=== PATIENT | male | born 1965 | race Two or more races ===

== ENCOUNTER 2020-05-31 12:39 | Inpatient (IN) | payer OTHER ==
[~2020-05-31] VITALS: Ht 144.8 cm; Wt 56.9 kg
--- NOTE | 2020-05-31 14:13 | PHYS DOC ---
Past Medical History Past Medical History: Diabetes-Type II, Hypertension Past Surgical History: No Surgical History Smoking Status: Never Smoker Alcohol Use: None Drug Use: None General Adult EDM: Chief Complaint: ABNORMAL LABS HPI: HPI: 55-year-old male presents emergency department today after being sent here when he had blood work taken a few days ago and then was called to go to the emergency department because of his lab work. He reports severe kidney damage and high potassium is the abnormal blood work. He otherwise feels fine and does not have any symptoms. Onset 2 days ago. Duration constant. No alleviating factors. No specific timing. Review of systems: He denies headache chest pain shortness of breath abdominal pain fevers chills. Negative for dysuria polyuria vomiting facial drooping vision changes slurred speech. All other review of systems negative. ED course: 55-year-old male presenting with abnormal labs. On arrival the patient severely hypertensive. IV labetalol given. Labs show acute renal failure with elevated potassium. Patient was given glucose insulin, bicarbonate. I spoke to our washer operator about the patient. He asked that I start the patient on 100 mL/h of maintenance fluids. We will admit the patient to hospital. I spoke with the hospitalist who accepts patient for admission. Heart Score: Risk Factors: Risk Factors: DM, Current or recent (<one month) smoker, HTN, HLP, family history of CAD, obesity. Risk Scores: Score 0 - 3: 2.5% MACE over next 6 weeks - Discharge Home Score 4 - 6: 20.3% MACE over next 6 weeks - Admit for Clinical Observation Score 7 - 10: 72.7% MACE over next 6 weeks - Early Invasive Strategies Physical Exam: PE: Constitutional: Well developed, well nourished, no acute distress, non-toxic appearance. [] HENT: Normocephalic, atraumatic, bilateral external ears normal, oropharynx moist, no oral exudates, nose normal. [] Eyes: PERRLA, EOMI, conjunctiva normal, no discharge. [] Neck: Normal range of motion, no tenderness, supple, no stridor. [] Cardiovascular:Heart rate regular rhythm, no murmur [] Lungs & Thorax: Bilateral breath sounds clear to auscultation [] Abdomen: Bowel sounds normal, soft, no tenderness, no masses, no pulsatile masses. [] Skin: Warm, dry, no erythema, no rash. [] Back: No tenderness, no CVA tenderness. [] Extremities: No tenderness, no cyanosis, no clubbing, ROM intact, no edema. [] Neurologic: Mental status: Awake oriented and alert x3 Cranial nerves: Extraocular movements intact, eyebrows jaylon bilaterally, smile symmetric, uvula elevation nl, shoulder shrug intact bilaterally, tongue protrusion normal DTRs: 2+ Sensation: equal and normal in all extremities Strength: 5/5 in upper and lower extremities bilaterally Psychologic: Affect normal, judgement normal, mood normal. [] EKG: EKG: [] Radiology/Procedures: Radiology/Procedures: [] Course & Med Decision Making: Course & Med Decision Making Pertinent Labs and Imaging studies reviewed. (See chart for details) [] Dragon Disclaimer: Dragon Disclaimer: This electronic medical record was generated, in whole or in part, using a voice recognition dictation system. Departure Departure Impression: Primary Impression: Acute renal failure (ARF) Additional Impression: Hyperkalemia Disposition: ADMITTED INPATIENT Condition: STABLE Referrals: CATHRYN GRECO (PCP) Justicifation of Admission Dx: Justifications for Admission: Justification of Admission Dx: Yes Critical Care Time Critical care time was 55 minutes exclusive of procedures. MIKE COLLIER MD May 31, 2020 14:13
[2020-05-31 14:15] LABS: BASO # 0.1 x10^3/uL (0.0-0.2); BASO % 1 % (0-3); EOS # 0.1 x10^3/uL (0.0-0.7); EOS % 2 % (0-3); HEMATOCRIT 26.1 % (39.0-53.0); LYMPH # 1.1 x10^3/uL (1.0-4.8); LYMPH % 13 % (24-48); MEAN CORPUSCULAR HEMOGLOBIN 31 pg (25-35); MEAN CORPUSCULAR HGB CONC 35 g/dL (31-37); MEAN CORPUSCULAR VOLUME 90 fL (79-100); MONO # 0.5 x10^3/uL (0.0-1.1); MONO % 6 % (0-9); NEUT # 6.5 x10^3/uL (1.8-7.7); NEUT % 79 % (31-73); PLATELET COUNT 197 x10^3/uL (140-400); RED BLOOD COUNT 2.91 x10^6/uL (4.30-5.70); RED CELL DISTRIBUTION WIDTH 13.1 % (11.5-14.5); WHITE BLOOD COUNT 8.3 x10^3/uL (4.0-11.0)
[2020-05-31] MEDS ORDERED: LABETALOL 20 MG/4 ML DISP.SYRIN. IVP ONE (14:15)
[2020-05-31 14:21] LABS: CREATININE 6.8 mg/dL (0.7-1.3); GFR 8.4; POTASSIUM 5.7 mmol/L (3.5-5.1)
[2020-05-31 14:27] LABS: ALBUMIN 3.2 g/dL (3.4-5.0); DIRECT BILIRUBIN 0.1 mg/dL (0.0-0.2); TOTAL BILIRUBIN 0.3 mg/dL (0.2-1.0); TOTAL PROTEIN 7.2 g/dL (6.4-8.2)
[2020-05-31] MEDS ORDERED: CALCIUM GLUCONATE 1,000 MG/10 ML VIAL. IVP ONE (14:45)
[2020-05-31] MEDS ORDERED: DEXTROSE 50% 25 GM / 50ML DISP.SYRIN. IV ONE (14:45)
[2020-05-31] MEDS ORDERED: ALBUTEROL SULFATE 2.5 MG/3 ML NEBU. CONT NEB ONE (14:45)
[2020-05-31] MEDS ORDERED: INSULIN REGULAR 100 UNIT/ML 3ML VIAL. IV ONE (14:45)
[2020-05-31] MEDS ORDERED: SODIUM BICARB ADULT 8.4% 50 MEQ/50 ML DISP.SYRIN. IV ONE (14:45)
[2020-05-31] MEDS ORDERED: IV NORMAL SALINE 1000ML BAG 1,000 ML IV SCH (15:00)
[2020-05-31 17:10] VITALS: BP 182/98
[2020-05-31] MEDS ORDERED: DEXTROSE 50% 25 GM / 50ML DISP.SYRIN. IV PRN (17:15)
--- NOTE | 2020-05-31 18:08 | PDOC1 ---
History and Physical Date of Admission Date of Admission DATE: 05/31/20 TIME: 18:08 Identification/Chief Complaint Chief Complaint Hyperkalemia Source Source: Caregiver History of Present Illness History of Present Illness Patient is a 55 to male who presents to the ED for hyperkalemia. History was obtained with assistance from patient's son. Patient was seen by his [facility] two days ago for initiation of dialysis appointment, with blood work drawn at that time. He was contacted today and told to go straight to the ED because his blood work showed hyperkalemia. Patient admits to some lethargy, mild numbness in his right hand, but denies any significant weakness. He was also noted to be severely hypertensive in the ED. He is somewhat of a poor historian, stating he only takes two medications, one fo blood pressure and one for diabetes, but he cannot recall the names. Past Medical History Cardiovascular: HTN Renal/: Chronic renal insuff Past Surgical History Past Surgical History: No pertinent history Family History Family History: Diabetes Social History Smoke: <1 pack per day ALCOHOL: none Drugs: None Current Problem List Problems: (1) Malnutrition (2) Acute renal failure (ARF) (3) Hyperkalemia (4) Acute on chronic renal failure (5) Hypertensive urgency Current Medications Current Medications Current Medications Labetalol HCl (Normodyne Iv Push) 10 mg 1X ONCE IVP Last administered on 05/31/20at 14:59; Start 05/31/20 at 14:15; Stop 05/31/20 at 14:22; Status DC Sodium Bicarbonate (Sodium Bicarb Adult 8.4% Syr) 50 meq 1X ONCE IV Last administered on 05/31/20at 15:00; Start 05/31/20 at 14:45; Stop 05/31/20 at 14:46; Status DC Calcium Gluconate (Calcium Gluconate) 1,000 mg 1X ONCE IVP Last administered on 05/31/20at 15:00; Start 05/31/20 at 14:45; Stop 05/31/20 at 14:46; Status DC Albuterol Sulfate (Ventolin Neb Soln) 10 mg 1X ONCE CONT NEB Last administered on 05/31/20at 14:52; Start 05/31/20 at 14:45; Stop 05/31/20 at 14:46; Status DC Insulin Human Regular (HumuLIN R VIAL) 10 unit 1X ONCE IV Last administered on 05/31/20at 15:02; Start 05/31/20 at 14:45; Stop 05/31/20 at 14:46; Status DC Dextrose (Dextrose 50%-Water Syringe) 25 gm 1X ONCE IV Last administered on 05/31/20at 15:00; Start 05/31/20 at 14:45; Stop 05/31/20 at 14:46; Status DC Sodium Chloride 1,000 ml @ 100 mls/hr 1X IV Last administered on 05/31/20at 15:04; Start 05/31/20 at 15:00; Stop 05/31/20 at 20:59 Insulin Human Lispro (HumaLOG) 0-5 UNITS TIDWMEALS SQ ; Start 06/01/20 at 08:00 Dextrose (Dextrose 50%-Water Syringe) 12.5 gm PRN Q15MIN PRN IV SEE COMMENTS; Start 05/31/20 at 17:15 Allergies Allergies: Coded Allergies: No Known Drug Allergies (Unverified , 05/31/20) ROS General: YES: Fatigue; No: Chills PSYCHOLOGICAL ROS: No: Anxiety, Depression Eyes: No Blurry vision, No Decreased vision, No Double vision HEENT: No: Heacaches, Nasal congestion, Sore Throat ALLERGY AND IMMUNOLOGY: No: Hives, Nasal Congestion Hematological and Lymphatic: No: Bleeding Problems, Brusing Respiratory: No: Cough, Shortness of breath, Wheezing Cardiovascular: No Chest Pain, No Palpitations Gastrointestinal: No Nausea, No Vomiting, No Abdominal Pain Genitourinary: No Dysuria Musculoskeletal: No Joint Swelling, No Muscle Pain, No Muscular Weakness Neurological: Yes Numbness/Tingling; No Confusion, No Dizziness, No Weakness Skin: No Dry Skin Physical Exam General: Alert, Oriented X3, Cooperative, No acute distress HEENT: PERRLA Lungs: Clear to auscultation, Normal air movement Heart: RRR, jugular vein distention Cardiovascular: S1, S2 Abdomen: Normal bowel sounds, Soft, No tenderness, No hepatosplenomegaly, No m asses Extremities: No clubbing, No cyanosis, No edema, Normal pulses, No tenderness/swelling Skin: No rashes, No breakdown, No significant lesion Neuro: Normal gait, Normal speech, Normal tone Psych/Mental Status: Mental status NL, Mood NL Vitals Vitals Vital Signs Date Time Temp Pulse Resp B/P (MAP) Pulse Ox O2 Delivery O2 Flow Rate FiO2 05/31/20 17:10 97.5 88 20 182/98 (126) 99 Room Air 97.5 Labs Labs Laboratory Tests Test 05/31/20 14:00 05/31/20 17:12 05/31/20 18:04 White Blood Count 8.3 x10^3/uL (4.0-11.0) Red Blood Count 2.91 x10^6/uL (4.30-5.70) Hemoglobin 9.0 g/dL (13.0-17.5) Hematocrit 26.1 % (39.0-53.0) Mean Corpuscular Volume 90 fL (79-100) Mean Corpuscular Hemoglobin 31 pg (25-35) Mean Corpuscular Hemoglobin Concent 35 g/dL (31-37) Red Cell Distribution Width 13.1 % (11.5-14.5) Platelet Count 197 x10^3/uL (140-400) Neutrophils (%) (Auto) 79 % (31-73) Lymphocytes (%) (Auto) 13 % (24-48) Monocytes (%) (Auto) 6 % (0-9) Eosinophils (%) (Auto) 2 % (0-3) Basophils (%) (Auto) 1 % (0-3) Neutrophils # (Auto) 6.5 x10^3/uL (1.8-7.7) Lymphocytes # (Auto) 1.1 x10^3/uL (1.0-4.8) Monocytes # (Auto) 0.5 x10^3/uL (0.0-1.1) Eosinophils # (Auto) 0.1 x10^3/uL (0.0-0.7) Basophils # (Auto) 0.1 x10^3/uL (0.0-0.2) Sodium Level 136 mmol/L (136-145) Potassium Level 5.7 mmol/L (3.5-5.1) Chloride Level 103 mmol/L (98-107) Carbon Dioxide Level 22 mmol/L (21-32) Anion Gap 11 (6-14) Blood Urea Nitrogen 68 mg/dL (8-26) Creatinine 6.8 mg/dL (0.7-1.3) Estimated GFR (Cockcroft-Gault) 8.4 Glucose Level 103 mg/dL (70-99) Calcium Level 8.0 mg/dL (8.5-10.1) Total Bilirubin 0.3 mg/dL (0.2-1.0) Direct Bilirubin 0.1 mg/dL (0.0-0.2) Aspartate Amino Transf (AST/SGOT) 17 U/L (15-37) Alanine Aminotransferase (ALT/SGPT) 23 U/L (16-63) Alkaline Phosphatase 99 U/L (46-116) Troponin I Quantitative < 0.017 ng/mL (0.000-0.055) Total Protein 7.2 g/dL (6.4-8.2) Albumin 3.2 g/dL (3.4-5.0) Lipase 257 U/L (73-393) Glucose (Fingerstick) 29 mg/dL (70-99) 92 mg/dL (70-99) Laboratory Tests Test 05/31/20 14:00 05/31/20 17:12 05/31/20 18:04 White Blood Count 8.3 x10^3/uL (4.0-11.0) Red Blood Count 2.91 x10^6/uL (4.30-5.70) Hemoglobin 9.0 g/dL (13.0-17.5) Hematocrit 26.1 % (39.0-53.0) Mean Corpuscular Volume 90 fL (79-100) Mean Corpuscular Hemoglobin 31 pg (25-35) Mean Corpuscular Hemoglobin Concent 35 g/dL (31-37) Red Cell Distribution Width 13.1 % (11.5-14.5) Platelet Count 197 x10^3/uL (140-400) Neutrophils (%) (Auto) 79 % (31-73) Lymphocytes (%) (Auto) 13 % (24-48) Monocytes (%) (Auto) 6 % (0-9) Eosinophils (%) (Auto) 2 % (0-3) Basophils (%) (Auto) 1 % (0-3) Neutrophils # (Auto) 6.5 x10^3/uL (1.8-7.7) Lymphocytes # (Auto) 1.1 x10^3/uL (1.0-4.8) Monocytes # (Auto) 0.5 x10^3/uL (0.0-1.1) Eosinophils # (Auto) 0.1 x10^3/uL (0.0-0.7) Basophils # (Auto) 0.1 x10^3/uL (0.0-0.2) Sodium Level 136 mmol/L (136-145) Potassium Level 5.7 mmol/L (3.5-5.1) Chloride Level 103 mmol/L (98-107) Carbon Dioxide Level 22 mmol/L (21-32) Anion Gap 11 (6-14) Blood Urea Nitrogen 68 mg/dL (8-26) Creatinine 6.8 mg/dL (0.7-1.3) Estimated GFR (Cockcroft-Gault) 8.4 Glucose Level 103 mg/dL (70-99) Calcium Level 8.0 mg/dL (8.5-10.1) Total Bilirubin 0.3 mg/dL (0.2-1.0) Direct Bilirubin 0.1 mg/dL (0.0-0.2) Aspartate Amino Transf (AST/SGOT) 17 U/L (15-37) Alanine Aminotransferase (ALT/SGPT) 23 U/L (16-63) Alkaline Phosphatase 99 U/L (46-116) Troponin I Quantitative < 0.017 ng/mL (0.000-0.055) Total Protein 7.2 g/dL (6.4-8.2) Albumin 3.2 g/dL (3.4-5.0) Lipase 257 U/L (73-393) Glucose (Fingerstick) 29 mg/dL (70-99) 92 mg/dL (70-99) VTE Prophylaxis Ordered VTE Prophylaxis Devices: No VTE Pharmacological Prophylaxi: Yes Assessment/Plan Assessment/Plan Acute on Chronic Renal Failure Hyperkalemia Hypertensive Urgency Malnutrition Plan: Will monitor potassium and administer insulin as needed. Labetalol prn SBP >180. Will resume home BP meds once we can verify, or discharge on calcium channel gabriella. Consult to Nephrology for any further ecommendation son management before discharge. He can initiate hemodialysis outpatient. Justifications for Admission Other Justification ANTONIO CISNEROS MD May 31, 2020 18:08
--- NOTE | 2020-05-31 18:12 | NUR ---
The patient, WILMAN BROWER, 55 y/o, M admitted by ANTONIO CISNEROS MD, was given written information regarding hospital policies, unit procedures and contact persons. Valuables were checked and left at bedside. Patient is [place]ian speaking only so spinner open end phone was used to question patient for medical histroy and home medications. Patient was diaphoretic upon arrival to unit. Upon check of blood glucose it was found to be 29. Gave 1/2 AMP of dextrose and a dinner tray. Will continue to monitor
[2020-05-31] MEDS ORDERED: BISACODYL 10 MG SUPP.RECT. PR PRN (18:15)
--- NOTE | 2020-05-31 18:24 | NUR ---
Recheck glucose = 92
[2020-05-31] MEDS ORDERED: SODIUM POLYSTYRENE SULFON/SORB 15 GM/60 ML ORAL.SUSP. PO ONE (18:30)
[2020-05-31 19:35] VITALS: BP 180/97
--- NOTE | 2020-05-31 20:19 | RAD ---
RENAL COMPLETE BILATERAL History: Reason: Kidney failure / Spl. Instructions: / History: Comparison: None. Procedure: Transabdominal ultrasound images are obtained of the kidneys and bladder. Findings: Right kidney: measures 9.6 by 4.8 x 4.7 cm. Right renal cyst measures 1.8 x 1.6 x 1.1 cm. No follow-up imaging is recommended per consensus recommendations based on imaging criteria. No hydronephrosis. Small perinephric fluid. Left kidney: measures 10.7 x 5.1 x 4.9 cm. Normal cortical echotexture. Corticomedullary differentiation is preserved. No hydronephrosis. Small perinephric fluid. Urinary bladder: Distended urinary bladder. Urinary bladder volume 503 mL. No urinary bladder wall thickening. Bilateral ureteral jets are identified. The IVC is normal caliber. The visualized abdominal aorta is normal caliber. Bilateral pleural effusions. IMPRESSION: 1. Small nonspecific bilateral perinephric fluid. No hydronephrosis. 2. Distended urinary bladder. 3. Bilateral pleural effusions. Electronically signed by: Damián Abad DO (05/31/2020 8:16 PM) [facility]
[2020-05-31] MEDS: LABETALOL 20 MG/4 ML DISP.SYRIN. IVP PRN (21:19)
[2020-05-31] MEDS: HEPARIN for SUB-Q USE 5,000 UNIT/ML VIAL. SQ SCH (21:26)
[2020-05-31 22:40] VITALS: BP 175/94
[2020-05-31 22:51] LABS: BILIRUBIN,URINE NEGATIVE (NEG); CLARITY,URINE CLEAR; COLOR,URINE YELLOW; NITRITE,URINE NEGATIVE (NEG); PROTEIN,URINE >=300 mg/dL (NEG-TRACE); UROBILINOGEN,URINE 0.2 mg/dL (0.2 mg/dL)
[2020-05-31 23:15] LABS: BACTERIA,URINE FEW /HPF (0-FEW)
[2020-05-31 23:16] LABS: SQUAMOUS EPITHELIAL CELL,UR FEW /LPF
[2020-06-01 02:30] VITALS: BP 160/86
[2020-06-01] MEDS: HEPARIN for SUB-Q USE 5,000 UNIT/ML VIAL. SQ SCH ×3 (06:23→22:20)
[2020-06-01 07:00] VITALS: BP 154/88
[2020-06-01] MEDS: INSULIN LISPRO 300 UNITS/3 ML VIAL. SQ SCH ×3 (08:00→17:00)
--- NOTE | 2020-06-01 09:58 | PDOC ---
PROGRESS NOTES Date of Service: DATE: 06/01/20 TIME: 09:58 Chief Complaint Chief Complaint VTE Prophylaxis Ordered VTE Prophylaxis Devices: No VTE Pharmacological Prophylaxi: Yes impression Assessment/Plan Acute on Chronic Renal Failure Hyperkalemia Hypertensive Urgency Malnutrition Plan: Will monitor potassium and administer insulin as needed. Labetalol prn SBP >180. Will resume home BP meds once we can verify, or discharge on calcium channel gabriella. Consult to Nephrology He can initiate hemodialysis outpatient. d/w rn Justifications for Admission Justifications for Admission Other Justification History of Present Illness History of Present Illness History of Present Illness History of Present Illness Patient is a 55 to male who presents to the ED for hyperkalemia. History was obtained with assistance from patient's son. 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 He was contacted today and told to go straight to the ED because his blood work showed hyperkalemia. Patient admits to some lethargy, mild numbness in his right hand, but denies any significant weakness. He was also noted to be severely hypertensive in the ED. He is somewhat of a poor historian, stating he only takes two medications, one fo blood pressure and one for diabetes, but he cannot recall the names. Past Medical History Cardiovascular: HTN Renal/: Chronic renal insuff Past Surgical History Past Surgical History: No pertinent history Family History Family History: Diabetes Social History Smoke: <1 pack per day ALCOHOL: none Drugs: None Vitals Vitals Vital Signs Date Time Temp Pulse Resp B/P (MAP) Pulse Ox O2 Delivery O2 Flow Rate FiO2 06/01/20 08:00 Room Air 06/01/20 07:00 98.2 91 18 154/88 (110) 96 98.2 Physical Exam General: Alert, Oriented X3, Cooperative, No acute distress Heart: Regular rate Abdomen: Normal bowel sounds, Soft, No tenderness, No hepatosplenomegaly, No masses Extremities: No clubbing, No cyanosis, No edema, Normal pulses, No t enderness/swelling Skin: No rashes, No breakdown, No significant lesion Labs LABS RENAL COMPLETE BILATERAL History: Reason: Kidney failure / Spl. Instructions: / History: Comparison: None. Procedure: Transabdominal ultrasound images are obtained of the kidneys and bladder. Findings: Right kidney: measures 9.6 by 4.8 x 4.7 cm. Right renal cyst measures 1.8 x 1.6 x 1.1 cm. No follow-up imaging is recommended per consensus recommendations based on imaging criteria. No hydronephrosis. Small perinephric fluid. Left kidney: measures 10.7 x 5.1 x 4.9 cm. Normal cortical echotexture. Corticomedullary differentiation is preserved. No hydronephrosis. Small perinephric fluid. Urinary bladder: Distended urinary bladder. Urinary bladder volume 503 mL. No urinary bladder wall thickening. Bilateral ureteral jets are identified. The IVC is normal caliber. The visualized abdominal aorta is normal caliber. Bilateral pleural effusions. IMPRESSION: 1. Small nonspecific bilateral perinephric fluid. No hydronephrosis. 2. Distended urinary bladder. 3. Bilateral pleural effusions. Electronically signed by: Damián Fang DO (05/31/2020 8:16 PM) [facility] DICTATED and SIGNED BY: DAMIÁN FANG DO Laboratory Tests Test 05/31/20 14:00 05/31/20 17:12 05/31/20 18:04 05/31/20 21:06 White Blood Count 8.3 x10^3/uL (4.0-11.0) Red Blood Count 2.91 x10^6/uL (4.30-5.70) Hemoglobin 9.0 g/dL (13.0-17.5) Hematocrit 26.1 % (39.0-53.0) Mean Corpuscular Volume 90 fL (79-100) Mean Corpuscular Hemoglobin 31 pg (25-35) Mean Corpuscular Hemoglobin Concent 35 g/dL (31-37) Red Cell Distribution Width 13.1 % (11.5-14.5) Platelet Count 197 x10^3/uL (140-400) Neutrophils (%) (Auto) 79 % (31-73) Lymphocytes (%) (Auto) 13 % (24-48) Monocytes (%) (Auto) 6 % (0-9) Eosinophils (%) (Auto) 2 % (0-3) Basophils (%) (Auto) 1 % (0-3) Neutrophils # (Auto) 6.5 x10^3/uL (1.8-7.7) Lymphocytes # (Auto) 1.1 x10^3/uL (1.0-4.8) Monocytes # (Auto) 0.5 x10^3/uL (0.0-1.1) Eosinophils # (Auto) 0.1 x10^3/uL (0.0-0.7) Basophils # (Auto) 0.1 x10^3/uL (0.0-0.2) Sodium Level 136 mmol/L (136-145) Potassium Level 5.7 mmol/L (3.5-5.1) Chloride Level 103 mmol/L (98-107) Carbon Dioxide Level 22 mmol/L (21-32) Anion Gap 11 (6-14) Blood Urea Nitrogen 68 mg/dL (8-26) Creatinine 6.8 mg/dL (0.7-1.3) Estimated GFR (Cockcroft-Gault) 8.4 Glucose Level 103 mg/dL (70-99) Calcium Level 8.0 mg/dL (8.5-10.1) Total Bilirubin 0.3 mg/dL (0.2-1.0) Direct Bilirubin 0.1 mg/dL (0.0-0.2) Aspartate Amino Transf (AST/SGOT) 17 U/L (15-37) Alanine Aminotransferase (ALT/SGPT) 23 U/L (16-63) Alkaline Phosphatase 99 U/L (46-116) Troponin I Quantitative < 0.017 ng/mL (0.000-0.055) Total Protein 7.2 g/dL (6.4-8.2) Albumin 3.2 g/dL (3.4-5.0) Lipase 257 U/L (73-393) Glucose (Fingerstick) 29 mg/dL (70-99) 92 mg/dL (70-99) 211 mg/dL (70-99) Test 05/31/20 22:45 06/01/20 07:19 Urine Collection Type Unknown Urine Color Yellow Urine Clarity Clear Urine pH 7.0 (<5.0-8.0) Urine Specific [place] 1.015 (1.000-1.030) Urine Protein >=300 mg/dL (NEG-TRACE) Urine Glucose (UA) 250 mg/dL (NEG) Urine Ketones (Stick) Negative mg/dL (NEG) Urine Blood Trace (NEG) Urine Nitrite Negative (NEG) Urine Bilirubin Negative (NEG) Urine Urobilinogen Dipstick 0.2 mg/dL (0.2 mg/dL) Urine Leukocyte Esterase Negative (NEG) Urine RBC 1-2 /HPF (0-2) Urine WBC 1-4 /HPF (0-4) Urine Squamous Epithelial Cells Few /LPF Urine Bacteria Few /HPF (0-FEW) Urine Mucus Slight /LPF Glucose (Fingerstick) 91 mg/dL (70-99) Comment Review of Relevant I have reviewed the following items tommy (where applicable) has been applied. Labs Laboratory Tests Test 05/31/20 14:00 05/31/20 17:12 05/31/20 18:04 05/31/20 21:06 White Blood Count 8.3 x10^3/uL (4.0-11.0) Red Blood Count 2.91 x10^6/uL (4.30-5.70) Hemoglobin 9.0 g/dL (13.0-17.5) Hematocrit 26.1 % (39.0-53.0) Mean Corpuscular Volume 90 fL (79-100) Mean Corpuscular Hemoglobin 31 pg (25-35) Mean Corpuscular Hemoglobin Concent 35 g/dL (31-37) Red Cell Distribution Width 13.1 % (11.5-14.5) Platelet Count 197 x10^3/uL (140-400) Neutrophils (%) (Auto) 79 % (31-73) Lymphocytes (%) (Auto) 13 % (24-48) Monocytes (%) (Auto) 6 % (0-9) Eosinophils (%) (Auto) 2 % (0-3) Basophils (%) (Auto) 1 % (0-3) Neutrophils # (Auto) 6.5 x10^3/uL (1.8-7.7) Lymphocytes # (Auto) 1.1 x10^3/uL (1.0-4.8) Monocytes # (Auto) 0.5 x10^3/uL (0.0-1.1) Eosinophils # (Auto) 0.1 x10^3/uL (0.0-0.7) Basophils # (Auto) 0.1 x10^3/uL (0.0-0.2) Sodium Level 136 mmol/L (136-145) Potassium Level 5.7 mmol/L (3.5-5.1) Chloride Level 103 mmol/L (98-107) Carbon Dioxide Level 22 mmol/L (21-32) Anion Gap 11 (6-14) Blood Urea Nitrogen 68 mg/dL (8-26) Creatinine 6.8 mg/dL (0.7-1.3) Estimated GFR (Cockcroft-Gault) 8.4 Glucose Level 103 mg/dL (70-99) Calcium Level 8.0 mg/dL (8.5-10.1) Total Bilirubin 0.3 mg/dL (0.2-1.0) Direct Bilirubin 0.1 mg/dL (0.0-0.2) Aspartate Amino Transf (AST/SGOT) 17 U/L (15-37) Alanine Aminotransferase (ALT/SGPT) 23 U/L (16-63) Alkaline Phosphatase 99 U/L (46-116) Troponin I Quantitative < 0.017 ng/mL (0.000-0.055) Total Protein 7.2 g/dL (6.4-8.2) Albumin 3.2 g/dL (3.4-5.0) Lipase 257 U/L (73-393) Glucose (Fingerstick) 29 mg/dL (70-99) 92 mg/dL (70-99) 211 mg/dL (70-99) Test 05/31/20 22:45 06/01/20 07:19 Urine Collection Type Unknown Urine Color Yellow Urine Clarity Clear Urine pH 7.0 (<5.0-8.0) Urine Specific [place] 1.015 (1.000-1.030) Urine Protein >=300 mg/dL (NEG-TRACE) Urine Glucose (UA) 250 mg/dL (NEG) Urine Ketones (Stick) Negative mg/dL (NEG) Urine Blood Trace (NEG) Urine Nitrite Negative (NEG) Urine Bilirubin Negative (NEG) Urine Urobilinogen Dipstick 0.2 mg/dL (0.2 mg/dL) Urine Leukocyte Esterase Negative (NEG) Urine RBC 1-2 /HPF (0-2) Urine WBC 1-4 /HPF (0-4) Urine Squamous Epithelial Cells Few /LPF Urine Bacteria Few /HPF (0-FEW) Urine Mucus Slight /LPF Glucose (Fingerstick) 91 mg/dL (70-99) Laboratory Tests Test 05/31/20 14:00 05/31/20 17:12 05/31/20 18:04 05/31/20 21:06 White Blood Count 8.3 x10^3/uL (4.0-11.0) Red Blood Count 2.91 x10^6/uL (4.30-5.70) Hemoglobin 9.0 g/dL (13.0-17.5) Hematocrit 26.1 % (39.0-53.0) Mean Corpuscular Volume 90 fL (79-100) Mean Corpuscular Hemoglobin 31 pg (25-35) Mean Corpuscular Hemoglobin Concent 35 g/dL (31-37) Red Cell Distribution Width 13.1 % (11.5-14.5) Platelet Count 197 x10^3/uL (140-400) Neutrophils (%) (Auto) 79 % (31-73) Lymphocytes (%) (Auto) 13 % (24-48) Monocytes (%) (Auto) 6 % (0-9) Eosinophils (%) (Auto) 2 % (0-3) Basophils (%) (Auto) 1 % (0-3) Neutrophils # (Auto) 6.5 x10^3/uL (1.8-7.7) Lymphocytes # (Auto) 1.1 x10^3/uL (1.0-4.8) Monocytes # (Auto) 0.5 x10^3/uL (0.0-1.1) Eosinophils # (Auto) 0.1 x10^3/uL (0.0-0.7) Basophils # (Auto) 0.1 x10^3/uL (0.0-0.2) Sodium Level 136 mmol/L (136-145) Potassium Level 5.7 mmol/L (3.5-5.1) Chloride Level 103 mmol/L (98-107) Carbon Dioxide Level 22 mmol/L (21-32) Anion Gap 11 (6-14) Blood Urea Nitrogen 68 mg/dL (8-26) Creatinine 6.8 mg/dL (0.7-1.3) Estimated GFR (Cockcroft-Gault) 8.4 Glucose Level 103 mg/dL (70-99) Calcium Level 8.0 mg/dL (8.5-10.1) Total Bilirubin 0.3 mg/dL (0.2-1.0) Direct Bilirubin 0.1 mg/dL (0.0-0.2) Aspartate Amino Transf (AST/SGOT) 17 U/L (15-37) Alanine Aminotransferase (ALT/SGPT) 23 U/L (16-63) Alkaline Phosphatase 99 U/L (46-116) Troponin I Quantitative < 0.017 ng/mL (0.000-0.055) Total Protein 7.2 g/dL (6.4-8.2) Albumin 3.2 g/dL (3.4-5.0) Lipase 257 U/L (73-393) Glucose (Fingerstick) 29 mg/dL (70-99) 92 mg/dL (70-99) 211 mg/dL (70-99) Test 05/31/20 22:45 06/01/20 07:19 Urine Collection Type Unknown Urine Color Yellow Urine Clarity Clear Urine pH 7.0 (<5.0-8.0) Urine Specific [place] 1.015 (1.000-1.030) Urine Protein >=300 mg/dL (NEG-TRACE) Urine Glucose (UA) 250 mg/dL (NEG) Urine Ketones (Stick) Negative mg/dL (NEG) Urine Blood Trace (NEG) Urine Nitrite Negative (NEG) Urine Bilirubin Negative (NEG) Urine Urobilinogen Dipstick 0.2 mg/dL (0.2 mg/dL) Urine Leukocyte Esterase Negative (NEG) Urine RBC 1-2 /HPF (0-2) Urine WBC 1-4 /HPF (0-4) Urine Squamous Epithelial Cells Few /LPF Urine Bacteria Few /HPF (0-FEW) Urine Mucus Slight /LPF Glucose (Fingerstick) 91 mg/dL (70-99) Medications Current Medications Labetalol HCl (Normodyne Iv Push) 10 mg 1X ONCE IVP Last administered on 05/31/20at 14:59; Start 05/31/20 at 14:15; Stop 05/31/20 at 14:22; Status DC Sodium Bicarbonate (Sodium Bicarb Adult 8.4% Syr) 50 meq 1X ONCE IV Last administered on 05/31/20at 15:00; Start 05/31/20 at 14:45; Stop 05/31/20 at 14:46; Status DC Calcium Gluconate (Calcium Gluconate) 1,000 mg 1X ONCE IVP Last administered on 05/31/20at 15:00; Start 05/31/20 at 14:45; Stop 05/31/20 at 14:46; Status DC Albuterol Sulfate (Ventolin Neb Soln) 10 mg 1X ONCE CONT NEB Last administered on 05/31/20at 14:52; Start 05/31/20 at 14:45; Stop 05/31/20 at 14:46; Status DC Insulin Human Regular (HumuLIN R VIAL) 10 unit 1X ONCE IV Last administered on 05/31/20at 15:02; Start 05/31/20 at 14:45; Stop 05/31/20 at 14:46; Status DC Dextrose (Dextrose 50%-Water Syringe) 25 gm 1X ONCE IV Last administered on 05/31/20at 15:00; Start 05/31/20 at 14:45; Stop 05/31/20 at 14:46; Status DC Sodium Chloride 1,000 ml @ 100 mls/hr 1X IV Last administered on 05/31/20at 15:04; Start 05/31/20 at 15:00; Stop 05/31/20 at 20:59; Status DC Insulin Human Lispro (HumaLOG) 0-5 UNITS TIDWMEALS SQ ; Start 06/01/20 at 08:00 Dextrose (Dextrose 50%-Water Syringe) 12.5 gm PRN Q15MIN PRN IV SEE COMMENTS; Start 05/31/20 at 17:15 Bisacodyl (Dulcolax Supp) 10 mg PRN DAILY PRN DC CONSTIPATION; Start 05/31/20 at 18:15 Heparin Sodium (Porcine) (Heparin Sodium) 5,000 unit Q8HRS SQ Last administered on 06/01/20at 06:23; Start 05/31/20 at 22:00 Sodium Polystyrene Sulfonate (Kayexalate) 30 gm 1X ONCE PO Last administered on 05/31/20at 21:19; Start 05/31/20 at 18:30; Stop 05/31/20 at 18:31; Status DC Labetalol HCl (Normodyne Iv Push) 10 mg PRN Q2HR PRN IVP HYPERTENSION Last administered on 05/31/20at 21:19; Start 05/31/20 at 19:00 Vitals/I & O Vital Sign - Last 24 Hours 05/31/20 05/31/20 05/31/20 05/31/20 13:55 14:00 14:30 14:55 Temp 98.6 98.6 Pulse 92 96 92 Resp 14 18 20 B/P (MAP) 210/111 (144) 210/111 (144) 193/109 (137) Pulse Ox 98 99 98 97 O2 Delivery Room Air Room Air Room Air Room Air 05/31/20 05/31/20 05/31/20 05/31/20 14:59 15:00 15:30 16:00 Pulse 93 86 88 94 Resp 18 20 20 B/P (MAP) 196/104 196/104 (134) 177/92 (120) 176/100 (125) Pulse Ox 99 96 98 O2 Delivery Room Air Room Air Room Air 05/31/20 05/31/20 05/31/20 05/31/20 16:34 17:10 18:29 19:35 Temp 97.5 97.5 97.5 97.5 Pulse 88 95 Resp 20 20 18 B/P (MAP) 181/94 (123) 182/98 (126) 180/97 (124) Pulse Ox 97 99 97 O2 Delivery Room Air Room Air Room Air Room Air 05/31/20 05/31/20 05/31/20 06/01/20 19:51 21:19 22:40 02:30 Temp 98.2 98.7 98.2 98.7 Pulse 95 75 94 Resp 18 18 B/P (MAP) 180/97 175/94 (121) 160/86 (110) Pulse Ox 97 97 O2 Delivery Room Air Room Air Room Air 06/01/20 06/01/20 07:00 08:00 Temp 98.2 98.2 Pulse 91 Resp 18 B/P (MAP) 154/88 (110) Pulse Ox 96 O2 Delivery Room Air Room Air Intake and Output 05/31/20 05/31/20 06/01/20 15:00 23:00 07:00 Intake Total 200 ml Output Total 400 ml Balance -400 ml 200 ml Justicifation of Admission Dx: Justifications for Admission: Justification of Admission Dx: Yes ELOISA JARAMILLO MD Jun 01, 2020 09:58
[2020-06-01 10:50] VITALS: BP 160/86
[2020-06-01 12:14] LABS: BASO % 0 % (0-3); EOS # 0.1 x10^3/uL (0.0-0.7); EOS % 1 % (0-3); HEMATOCRIT 22.8 % (39.0-53.0); HEMOGLOBIN 7.8 g/dL (13.0-17.5); LYMPH # 1.1 x10^3/uL (1.0-4.8); LYMPH % 15 % (24-48); MEAN CORPUSCULAR HEMOGLOBIN 31 pg (25-35); MEAN CORPUSCULAR HGB CONC 34 g/dL (31-37); MEAN CORPUSCULAR VOLUME 90 fL (79-100); MONO # 0.5 x10^3/uL (0.0-1.1); MONO % 7 % (0-9); NEUT # 5.7 x10^3/uL (1.8-7.7); NEUT % 77 % (31-73); PLATELET COUNT 160 x10^3/uL (140-400); RED BLOOD COUNT 2.54 x10^6/uL (4.30-5.70); WHITE BLOOD COUNT 7.4 x10^3/uL (4.0-11.0)
[2020-06-01 12:28] LABS: CALCIUM 7.9 mg/dL (8.5-10.1); CREATININE 6.4 mg/dL (0.7-1.3)
--- NOTE | 2020-06-01 13:00 | PDOC2 ---
CONSULT Date of Consult Date of Consult DATE: 06/01/20 TIME: 12:50 Reason for Consult Reason for Consult: RENAL FAILURE Referring Physician Referring Physician: AMELIA Identification/Chief Complaint Chief Complaint THIS IS A 55 YR OLD WITH HYPERKALEMIA FROM OP LABS. HAS HAD PROGRESSIVE RENAL FAILURE DUE TO HTN AND DM II. CR ABOUT 3.5 COUPLE MONTHS AGO AND WAS STAGE 4 THEN AND HAS HAD PT EDUCATION FOR ESRD. D/W PT MODALITIES BUT HE HAD NOT DECIDED. CURRENTLY K OF 5.7 AND CR OF 6.8. HAS HAD SOME LETHARGY ON EVALUATION IN THE ER. BP 210/111 AT PRESENTATION. SUSPECT NON COMPLIANCE AND A POOR AWARENESS OF HIS MEDICAL PROBLEMS. INFORMATION TRANSLATED BY HIS SISTER. SONOGRAM NEG FOR ACUTE CHANGES BUT ? OF BLADDER DISTENTION. BUT DENIED ANY PROBLEMS WITH EMPTYING HIS BLADDER. NO RECENT NEPHROTOXIN EXPOSURE. ALSO VERY ANEMIC WITH HGB OF ABOUT 7.5 Source Source: Chart review, Patient History of Present Illness Reason for Visit: ABOVE Past Medical History Cardiovascular: HTN GI: Constipation Heme/Onc: Anemia NOS Renal/: Chronic renal insuff Endocrine: Diabetes Past Surgical History Past Surgical History: No pertinent history Family History Family History: Diabetes, Hypertension Social History <1 pack per day ALCOHOL: none Drugs: None Current Medications Current Medications Current Medications Labetalol HCl (Normodyne Iv Push) 10 mg 1X ONCE IVP Last administered on 05/31/20at 14:59; Start 05/31/20 at 14:15; Stop 05/31/20 at 14:22; Status DC Sodium Bicarbonate (Sodium Bicarb Adult 8.4% Syr) 50 meq 1X ONCE IV Last administered on 05/31/20at 15:00; Start 05/31/20 at 14:45; Stop 05/31/20 at 14:46; Status DC Calcium Gluconate (Calcium Gluconate) 1,000 mg 1X ONCE IVP Last administered on 05/31/20at 15:00; Start 05/31/20 at 14:45; Stop 05/31/20 at 14:46; Status DC Albuterol Sulfate (Ventolin Neb Soln) 10 mg 1X ONCE CONT NEB Last administered on 05/31/20at 14:52; Start 05/31/20 at 14:45; Stop 05/31/20 at 14:46; Status DC Insulin Human Regular (HumuLIN R VIAL) 10 unit 1X ONCE IV Last administered on 05/31/20at 15:02; Start 05/31/20 at 14:45; Stop 05/31/20 at 14:46; Status DC Dextrose (Dextrose 50%-Water Syringe) 25 gm 1X ONCE IV Last administered on 05/31/20at 15:00; Start 05/31/20 at 14:45; Stop 05/31/20 at 14:46; Status DC Sodium Chloride 1,000 ml @ 100 mls/hr 1X IV Last administered on 05/31/20at 15:04; Start 05/31/20 at 15:00; Stop 05/31/20 at 20:59; Status DC Insulin Human Lispro (HumaLOG) 0-5 UNITS TIDWMEALS SQ ; Start 06/01/20 at 08:00 Dextrose (Dextrose 50%-Water Syringe) 12.5 gm PRN Q15MIN PRN IV SEE COMMENTS; Start 05/31/20 at 17:15 Bisacodyl (Dulcolax Supp) 10 mg PRN DAILY PRN TX CONSTIPATION; Start 05/31/20 at 18:15 Heparin Sodium (Porcine) (Heparin Sodium) 5,000 unit Q8HRS SQ Last administered on 06/01/20at 06:23; Start 05/31/20 at 22:00 Sodium Polystyrene Sulfonate (Kayexalate) 30 gm 1X ONCE PO Last administered on 05/31/20at 21:19; Start 05/31/20 at 18:30; Stop 05/31/20 at 18:31; Status DC Labetalol HCl (Normodyne Iv Push) 10 mg PRN Q2HR PRN IVP HYPERTENSION Last administered on 05/31/20at 21:19; Start 05/31/20 at 19:00 Allergies Allergies: Coded Allergies: No Known Drug Allergies (Unverified , 05/31/20) ROS General: YES: Fatigue, Malaise, Appetite Eyes: Yes Decreased vision HEENT: YES: Heacaches Respiratory: YES: Cough, Shortness of breath Gastrointestinal: Yes Nausea, Yes Constipation Genitourinary: YES Other Musculoskeletal: Yes Muscular Weakness Neurological: Yes Dizziness, Yes Weakness Skin: Yes Dry Skin Physical Exam General: Alert, Oriented X3, Cooperative, No acute distress HEENT: Atraumatic, PERRLA Lungs: Clear to auscultation Heart: Regular rate, Normal S1, Normal S2 Abdomen: Normal bowel sounds, Soft, No tenderness Extremities: No clubbing Skin: No breakdown Neuro: Normal speech, Cranial nerves 3-12 NL Psych/Mental Status: Mental status NL, Mood NL MUSCULOSKELETAL: No deformity, No swelling Vitals VITALS Vital Signs Date Time Temp Pulse Resp B/P (MAP) Pulse Ox O2 Delivery O2 Flow Rate FiO2 06/01/20 10:50 97.7 88 18 160/86 (110) 97 Room Air 97.7 Labs Labs Laboratory Tests Test 05/31/20 14:00 05/31/20 17:12 05/31/20 18:04 05/31/20 21:06 White Blood Count 8.3 x10^3/uL (4.0-11.0) Red Blood Count 2.91 x10^6/uL (4.30-5.70) Hemoglobin 9.0 g/dL (13.0-17.5) Hematocrit 26.1 % (39.0-53.0) Mean Corpuscular Volume 90 fL (79-100) Mean Corpuscular Hemoglobin 31 pg (25-35) Mean Corpuscular Hemoglobin Concent 35 g/dL (31-37) Red Cell Distribution Width 13.1 % (11.5-14.5) Platelet Count 197 x10^3/uL (140-400) Neutrophils (%) (Auto) 79 % (31-73) Lymphocytes (%) (Auto) 13 % (24-48) Monocytes (%) (Auto) 6 % (0-9) Eosinophils (%) (Auto) 2 % (0-3) Basophils (%) (Auto) 1 % (0-3) Neutrophils # (Auto) 6.5 x10^3/uL (1.8-7.7) Lymphocytes # (Auto) 1.1 x10^3/uL (1.0-4.8) Monocytes # (Auto) 0.5 x10^3/uL (0.0-1.1) Eosinophils # (Auto) 0.1 x10^3/uL (0.0-0.7) Basophils # (Auto) 0.1 x10^3/uL (0.0-0.2) Sodium Level 136 mmol/L (136-145) Potassium Level 5.7 mmol/L (3.5-5.1) Chloride Level 103 mmol/L (98-107) Carbon Dioxide Level 22 mmol/L (21-32) Anion Gap 11 (6-14) Blood Urea Nitrogen 68 mg/dL (8-26) Creatinine 6.8 mg/dL (0.7-1.3) Estimated GFR (Cockcroft-Gault) 8.4 Glucose Level 103 mg/dL (70-99) Calcium Level 8.0 mg/dL (8.5-10.1) Total Bilirubin 0.3 mg/dL (0.2-1.0) Direct Bilirubin 0.1 mg/dL (0.0-0.2) Aspartate Amino Transf (AST/SGOT) 17 U/L (15-37) Alanine Aminotransferase (ALT/SGPT) 23 U/L (16-63) Alkaline Phosphatase 99 U/L (46-116) Troponin I Quantitative < 0.017 ng/mL (0.000-0.055) Total Protein 7.2 g/dL (6.4-8.2) Albumin 3.2 g/dL (3.4-5.0) Lipase 257 U/L (73-393) Glucose (Fingerstick) 29 mg/dL (70-99) 92 mg/dL (70-99) 211 mg/dL (70-99) Test 05/31/20 22:45 06/01/20 07:19 06/01/20 10:56 06/01/20 11:45 Urine Collection Type Unknown Urine Color Yellow Urine Clarity Clear Urine pH 7.0 (<5.0-8.0) Urine Specific [place] 1.015 (1.000-1.030) Urine Protein >=300 mg/dL (NEG-TRACE) Urine Glucose (UA) 250 mg/dL (NEG) Urine Ketones (Stick) Negative mg/dL (NEG) Urine Blood Trace (NEG) Urine Nitrite Negative (NEG) Urine Bilirubin Negative (NEG) Urine Urobilinogen Dipstick 0.2 mg/dL (0.2 mg/dL) Urine Leukocyte Esterase Negative (NEG) Urine RBC 1-2 /HPF (0-2) Urine WBC 1-4 /HPF (0-4) Urine Squamous Epithelial Cells Few /LPF Urine Bacteria Few /HPF (0-FEW) Urine Mucus Slight /LPF Glucose (Fingerstick) 91 mg/dL (70-99) 159 mg/dL (70-99) White Blood Count 7.4 x10^3/uL (4.0-11.0) Red Blood Count 2.54 x10^6/uL (4.30-5.70) Hemoglobin 7.8 g/dL (13.0-17.5) Hematocrit 22.8 % (39.0-53.0) Mean Corpuscular Volume 90 fL (79-100) Mean Corpuscular Hemoglobin 31 pg (25-35) Mean Corpuscular Hemoglobin Concent 34 g/dL (31-37) Red Cell Distribution Width 13.0 % (11.5-14.5) Platelet Count 160 x10^3/uL (140-400) Neutrophils (%) (Auto) 77 % (31-73) Lymphocytes (%) (Auto) 15 % (24-48) Monocytes (%) (Auto) 7 % (0-9) Eosinophils (%) (Auto) 1 % (0-3) Basophils (%) (Auto) 0 % (0-3) Neutrophils # (Auto) 5.7 x10^3/uL (1.8-7.7) Lymphocytes # (Auto) 1.1 x10^3/uL (1.0-4.8) Monocytes # (Auto) 0.5 x10^3/uL (0.0-1.1) Eosinophils # (Auto) 0.1 x10^3/uL (0.0-0.7) Basophils # (Auto) 0.0 x10^3/uL (0.0-0.2) Sodium Level 139 mmol/L (136-145) Potassium Level 5.0 mmol/L (3.5-5.1) Chloride Level 106 mmol/L (98-107) Carbon Dioxide Level 23 mmol/L (21-32) Anion Gap 10 (6-14) Blood Urea Nitrogen 67 mg/dL (8-26) Creatinine 6.4 mg/dL (0.7-1.3) Estimated GFR (Cockcroft-Gault) 9.0 Glucose Level 130 mg/dL (70-99) Calcium Level 7.9 mg/dL (8.5-10.1) Laboratory Tests Test 05/31/20 14:00 05/31/20 17:12 05/31/20 18:04 05/31/20 21:06 White Blood Count 8.3 x10^3/uL (4.0-11.0) Red Blood Count 2.91 x10^6/uL (4.30-5.70) Hemoglobin 9.0 g/dL (13.0-17.5) Hematocrit 26.1 % (39.0-53.0) Mean Corpuscular Volume 90 fL (79-100) Mean Corpuscular Hemoglobin 31 pg (25-35) Mean Corpuscular Hemoglobin Concent 35 g/dL (31-37) Red Cell Distribution Width 13.1 % (11.5-14.5) Platelet Count 197 x10^3/uL (140-400) Neutrophils (%) (Auto) 79 % (31-73) Lymphocytes (%) (Auto) 13 % (24-48) Monocytes (%) (Auto) 6 % (0-9) Eosinophils (%) (Auto) 2 % (0-3) Basophils (%) (Auto) 1 % (0-3) Neutrophils # (Auto) 6.5 x10^3/uL (1.8-7.7) Lymphocytes # (Auto) 1.1 x10^3/uL (1.0-4.8) Monocytes # (Auto) 0.5 x10^3/uL (0.0-1.1) Eosinophils # (Auto) 0.1 x10^3/uL (0.0-0.7) Basophils # (Auto) 0.1 x10^3/uL (0.0-0.2) Sodium Level 136 mmol/L (136-145) Potassium Level 5.7 mmol/L (3.5-5.1) Chloride Level 103 mmol/L (98-107) Carbon Dioxide Level 22 mmol/L (21-32) Anion Gap 11 (6-14) Blood Urea Nitrogen 68 mg/dL (8-26) Creatinine 6.8 mg/dL (0.7-1.3) Estimated GFR (Cockcroft-Gault) 8.4 Glucose Level 103 mg/dL (70-99) Calcium Level 8.0 mg/dL (8.5-10.1) Total Bilirubin 0.3 mg/dL (0.2-1.0) Direct Bilirubin 0.1 mg/dL (0.0-0.2) Aspartate Amino Transf (AST/SGOT) 17 U/L (15-37) Alanine Aminotransferase (ALT/SGPT) 23 U/L (16-63) Alkaline Phosphatase 99 U/L (46-116) Troponin I Quantitative < 0.017 ng/mL (0.000-0.055) Total Protein 7.2 g/dL (6.4-8.2) Albumin 3.2 g/dL (3.4-5.0) Lipase 257 U/L (73-393) Glucose (Fingerstick) 29 mg/dL (70-99) 92 mg/dL (70-99) 211 mg/dL (70-99) Test 05/31/20 22:45 06/01/20 07:19 06/01/20 10:56 06/01/20 11:45 Urine Collection Type Unknown Urine Color Yellow Urine Clarity Clear Urine pH 7.0 (<5.0-8.0) Urine Specific [place] 1.015 (1.000-1.030) Urine Protein >=300 mg/dL (NEG-TRACE) Urine Glucose (UA) 250 mg/dL (NEG) Urine Ketones (Stick) Negative mg/dL (NEG) Urine Blood Trace (NEG) Urine Nitrite Negative (NEG) Urine Bilirubin Negative (NEG) Urine Urobilinogen Dipstick 0.2 mg/dL (0.2 mg/dL) Urine Leukocyte Esterase Negative (NEG) Urine RBC 1-2 /HPF (0-2) Urine WBC 1-4 /HPF (0-4) Urine Squamous Epithelial Cells Few /LPF Urine Bacteria Few /HPF (0-FEW) Urine Mucus Slight /LPF Glucose (Fingerstick) 91 mg/dL (70-99) 159 mg/dL (70-99) White Blood Count 7.4 x10^3/uL (4.0-11.0) Red Blood Count 2.54 x10^6/uL (4.30-5.70) Hemoglobin 7.8 g/dL (13.0-17.5) Hematocrit 22.8 % (39.0-53.0) Mean Corpuscular Volume 90 fL (79-100) Mean Corpuscular Hemoglobin 31 pg (25-35) Mean Corpuscular Hemoglobin Concent 34 g/dL (31-37) Red Cell Distribution Width 13.0 % (11.5-14.5) Platelet Count 160 x10^3/uL (140-400) Neutrophils (%) (Auto) 77 % (31-73) Lymphocytes (%) (Auto) 15 % (24-48) Monocytes (%) (Auto) 7 % (0-9) Eosinophils (%) (Auto) 1 % (0-3) Basophils (%) (Auto) 0 % (0-3) Neutrophils # (Auto) 5.7 x10^3/uL (1.8-7.7) Lymphocytes # (Auto) 1.1 x10^3/uL (1.0-4.8) Monocytes # (Auto) 0.5 x10^3/uL (0.0-1.1) Eosinophils # (Auto) 0.1 x10^3/uL (0.0-0.7) Basophils # (Auto) 0.0 x10^3/uL (0.0-0.2) Sodium Level 139 mmol/L (136-145) Potassium Level 5.0 mmol/L (3.5-5.1) Chloride Level 106 mmol/L (98-107) Carbon Dioxide Level 23 mmol/L (21-32) Anion Gap 10 (6-14) Blood Urea Nitrogen 67 mg/dL (8-26) Creatinine 6.4 mg/dL (0.7-1.3) Estimated GFR (Cockcroft-Gault) 9.0 Glucose Level 130 mg/dL (70-99) Calcium Level 7.9 mg/dL (8.5-10.1) Assessment/Plan Assessment/Plan IMP RENAL FAILURE-MOST LIKELY ESRD ANEMIA UNCONTROLLED HTN DM II NON COMPLIANCE ? URINARY RETENTION PLAN BLADDER SCAN SONO NOTED HYDRATION CONTROL HTN RESUME HOME MEDS CHECK PO4 CHECK IRON START [facility] ONCE HTN CONTROL IS BETTER PROB WILL NEED TO START HD ON WEDNESDAY UPDATED FAMILY TATUM PALUMBO MD Jun 01, 2020 13:00
[2020-06-01] MEDS: IV NORMAL SALINE 1000ML BAG 1,000 ML IV SCH (13:23)
[2020-06-01 14:55] VITALS: BP 161/88
[2020-06-01 20:06] VITALS: BP 168/96
[2020-06-01 23:35] VITALS: BP 167/98
[2020-06-02] MEDS: IV NORMAL SALINE 1000ML BAG 1,000 ML IV SCH ×2 (00:36→15:16)
[2020-06-02 03:47] VITALS: BP 156/93
[2020-06-02] MEDS: HEPARIN for SUB-Q USE 5,000 UNIT/ML VIAL. SQ SCH ×3 (06:34→22:43)
[2020-06-02 07:00] VITALS: BP 172/93
[2020-06-02] MEDS: INSULIN LISPRO 300 UNITS/3 ML VIAL. SQ SCH ×3 (08:00→17:00)
[2020-06-02 10:26] LABS: BASO % 1 % (0-3); EOS # 0.2 x10^3/uL (0.0-0.7); EOS % 3 % (0-3); HEMATOCRIT 24.9 % (39.0-53.0); HEMOGLOBIN 8.5 g/dL (13.0-17.5); LYMPH # 1.1 x10^3/uL (1.0-4.8); LYMPH % 15 % (24-48); MEAN CORPUSCULAR HEMOGLOBIN 31 pg (25-35); MEAN CORPUSCULAR HGB CONC 34 g/dL (31-37); MEAN CORPUSCULAR VOLUME 90 fL (79-100); MONO # 0.4 x10^3/uL (0.0-1.1); MONO % 5 % (0-9); NEUT # 5.4 x10^3/uL (1.8-7.7); NEUT % 77 % (31-73); PLATELET COUNT 175 x10^3/uL (140-400); RED BLOOD COUNT 2.77 x10^6/uL (4.30-5.70); RED CELL DISTRIBUTION WIDTH 13.2 % (11.5-14.5)
[2020-06-02 10:44] LABS: CALCIUM 8.2 mg/dL (8.5-10.1); CREATININE 5.9 mg/dL (0.7-1.3); GFR 9.9; PHOSPHORUS 5.1 mg/dL (2.6-4.7)
[2020-06-02 11:00] VITALS: BP 170/95
--- NOTE | 2020-06-02 11:21 | PDOC ---
PROGRESS NOTES Date of Service: DATE: 06/02/20 TIME: 11:21 Chief Complaint Chief Complaint VTE Prophylaxis Ordered VTE Prophylaxis Devices: No VTE Pharmacological Prophylaxi: Yes impression Assessment/Plan Acute on Chronic Renal Failure Hyperkalemia Hypertensive Urgency Malnutrition Plan: CVC BED monitor potassium and administer insulin as needed. Labetalol prn SBP >180. Will resume home BP meds once we can verify, or discharge on calcium channel gabriella. Consult to Nephrology He can initiate hemodialysis outpatient. TUNNELLED CATH 06/03 d/w rn Justifications for Admission Justifications for Admission Other Justification History of Present Illness History of Present Illness History of Present Illness History of Present Illness Patient is a 55 to male who presents to the ED for hyperkalemia. History was obtained with assistance from patient's son. Patient was seen by his nephrolo gist's office two days ago for initiation of dialysis appointment, with blood work drawn at that time. He was contacted today and told to go straight to the ED because his blood work showed hyperkalemia. Patient admits to some lethargy, mild numbness in his right hand, but denies any significant weakness. He was also noted to be severely hypertensive in the ED. He is somewhat of a poor historian, stating he only takes two medications, one fo blood pressure and one for diabetes, but he cannot recall the names. Past Medical History Cardiovascular: HTN Renal/: Chronic renal insuff Past Surgical History Past Surgical History: No pertinent history Family History Family History: Diabetes Social History Smoke: <1 pack per day ALCOHOL: none Drugs: None Vitals Vitals Vital Signs Date Time Temp Pulse Resp B/P (MAP) Pulse Ox O2 Delivery O2 Flow Rate FiO2 06/02/20 08:00 Room Air 06/02/20 07:00 98.1 95 16 172/93 (119) 93 98.1 Physical Exam General: Alert, Oriented X3, Cooperative, No acute distress Heart: Regular rate Abdomen: Normal bowel sounds, Soft, No tenderness Extremities: No clubbing Skin: No breakdown Labs LABS Laboratory Tests Test 06/01/20 11:45 06/01/20 16:47 06/01/20 20:48 06/02/20 08:05 White Blood Count 7.4 x10^3/uL (4.0-11.0) Red Blood Count 2.54 x10^6/uL (4.30-5.70) Hemoglobin 7.8 g/dL (13.0-17.5) Hematocrit 22.8 % (39.0-53.0) Mean Corpuscular Volume 90 fL (79-100) Mean Corpuscular Hemoglobin 31 pg (25-35) Mean Corpuscular Hemoglobin Concent 34 g/dL (31-37) Red Cell Distribution Width 13.0 % (11.5-14.5) Platelet Count 160 x10^3/uL (140-400) Neutrophils (%) (Auto) 77 % (31-73) Lymphocytes (%) (Auto) 15 % (24-48) Monocytes (%) (Auto) 7 % (0-9) Eosinophils (%) (Auto) 1 % (0-3) Basophils (%) (Auto) 0 % (0-3) Neutrophils # (Auto) 5.7 x10^3/uL (1.8-7.7) Lymphocytes # (Auto) 1.1 x10^3/uL (1.0-4.8) Monocytes # (Auto) 0.5 x10^3/uL (0.0-1.1) Eosinophils # (Auto) 0.1 x10^3/uL (0.0-0.7) Basophils # (Auto) 0.0 x10^3/uL (0.0-0.2) Sodium Level 139 mmol/L (136-145) Potassium Level 5.0 mmol/L (3.5-5.1) Chloride Level 106 mmol/L (98-107) Carbon Dioxide Level 23 mmol/L (21-32) Anion Gap 10 (6-14) Blood Urea Nitrogen 67 mg/dL (8-26) Creatinine 6.4 mg/dL (0.7-1.3) Estimated GFR (Cockcroft-Gault) 9.0 Glucose Level 130 mg/dL (70-99) Calcium Level 7.9 mg/dL (8.5-10.1) Glucose (Fingerstick) 80 mg/dL (70-99) 82 mg/dL (70-99) 89 mg/dL (70-99) Test 06/02/20 09:50 White Blood Count 7.0 x10^3/uL (4.0-11.0) Red Blood Count 2.77 x10^6/uL (4.30-5.70) Hemoglobin 8.5 g/dL (13.0-17.5) Hematocrit 24.9 % (39.0-53.0) Mean Corpuscular Volume 90 fL (79-100) Mean Corpuscular Hemoglobin 31 pg (25-35) Mean Corpuscular Hemoglobin Concent 34 g/dL (31-37) Red Cell Distribution Width 13.2 % (11.5-14.5) Platelet Count 175 x10^3/uL (140-400) Neutrophils (%) (Auto) 77 % (31-73) Lymphocytes (%) (Auto) 15 % (24-48) Monocytes (%) (Auto) 5 % (0-9) Eosinophils (%) (Auto) 3 % (0-3) Basophils (%) (Auto) 1 % (0-3) Neutrophils # (Auto) 5.4 x10^3/uL (1.8-7.7) Lymphocytes # (Auto) 1.1 x10^3/uL (1.0-4.8) Monocytes # (Auto) 0.4 x10^3/uL (0.0-1.1) Eosinophils # (Auto) 0.2 x10^3/uL (0.0-0.7) Basophils # (Auto) 0.0 x10^3/uL (0.0-0.2) Sodium Level 139 mmol/L (136-145) Potassium Level 5.0 mmol/L (3.5-5.1) Chloride Level 107 mmol/L (98-107) Carbon Dioxide Level 19 mmol/L (21-32) Anion Gap 13 (6-14) Blood Urea Nitrogen 57 mg/dL (8-26) Creatinine 5.9 mg/dL (0.7-1.3) Estimated GFR (Cockcroft-Gault) 9.9 Glucose Level 167 mg/dL (70-99) Calcium Level 8.2 mg/dL (8.5-10.1) Phosphorus Level 5.1 mg/dL (2.6-4.7) Iron Level 57 ug/dL (65-175) Total Iron Binding Capacity 225 ug/dL (250-450) Iron Saturation 25 % (15-34) Comment Review of Relevant I have reviewed the following items tommy (where applicable) has been applied. Labs Laboratory Tests Test 05/31/20 14:00 05/31/20 17:12 05/31/20 18:04 05/31/20 21:06 White Blood Count 8.3 x10^3/uL (4.0-11.0) Red Blood Count 2.91 x10^6/uL (4.30-5.70) Hemoglobin 9.0 g/dL (13.0-17.5) Hematocrit 26.1 % (39.0-53.0) Mean Corpuscular Volume 90 fL (79-100) Mean Corpuscular Hemoglobin 31 pg (25-35) Mean Corpuscular Hemoglobin Concent 35 g/dL (31-37) Red Cell Distribution Width 13.1 % (11.5-14.5) Platelet Count 197 x10^3/uL (140-400) Neutrophils (%) (Auto) 79 % (31-73) Lymphocytes (%) (Auto) 13 % (24-48) Monocytes (%) (Auto) 6 % (0-9) Eosinophils (%) (Auto) 2 % (0-3) Basophils (%) (Auto) 1 % (0-3) Neutrophils # (Auto) 6.5 x10^3/uL (1.8-7.7) Lymphocytes # (Auto) 1.1 x10^3/uL (1.0-4.8) Monocytes # (Auto) 0.5 x10^3/uL (0.0-1.1) Eosinophils # (Auto) 0.1 x10^3/uL (0.0-0.7) Basophils # (Auto) 0.1 x10^3/uL (0.0-0.2) Sodium Level 136 mmol/L (136-145) Potassium Level 5.7 mmol/L (3.5-5.1) Chloride Level 103 mmol/L (98-107) Carbon Dioxide Level 22 mmol/L (21-32) Anion Gap 11 (6-14) Blood Urea Nitrogen 68 mg/dL (8-26) Creatinine 6.8 mg/dL (0.7-1.3) Estimated GFR (Cockcroft-Gault) 8.4 Glucose Level 103 mg/dL (70-99) Calcium Level 8.0 mg/dL (8.5-10.1) Total Bilirubin 0.3 mg/dL (0.2-1.0) Direct Bilirubin 0.1 mg/dL (0.0-0.2) Aspartate Amino Transf (AST/SGOT) 17 U/L (15-37) Alanine Aminotransferase (ALT/SGPT) 23 U/L (16-63) Alkaline Phosphatase 99 U/L (46-116) Troponin I Quantitative < 0.017 ng/mL (0.000-0.055) Total Protein 7.2 g/dL (6.4-8.2) Albumin 3.2 g/dL (3.4-5.0) Lipase 257 U/L (73-393) Glucose (Fingerstick) 29 mg/dL (70-99) 92 mg/dL (70-99) 211 mg/dL (70-99) Test 05/31/20 22:45 06/01/20 07:19 06/01/20 10:56 06/01/20 11:45 Urine Collection Type Unknown Urine Color Yellow Urine Clarity Clear Urine pH 7.0 (<5.0-8.0) Urine Specific [place] 1.015 (1.000-1.030) Urine Protein >=300 mg/dL (NEG-TRACE) Urine Glucose (UA) 250 mg/dL (NEG) Urine Ketones (Stick) Negative mg/dL (NEG) Urine Blood Trace (NEG) Urine Nitrite Negative (NEG) Urine Bilirubin Negative (NEG) Urine Urobilinogen Dipstick 0.2 mg/dL (0.2 mg/dL) Urine Leukocyte Esterase Negative (NEG) Urine RBC 1-2 /HPF (0-2) Urine WBC 1-4 /HPF (0-4) Urine Squamous Epithelial Cells Few /LPF Urine Bacteria Few /HPF (0-FEW) Urine Mucus Slight /LPF Glucose (Fingerstick) 91 mg/dL (70-99) 159 mg/dL (70-99) White Blood Count 7.4 x10^3/uL (4.0-11.0) Red Blood Count 2.54 x10^6/uL (4.30-5.70) Hemoglobin 7.8 g/dL (13.0-17.5) Hematocrit 22.8 % (39.0-53.0) Mean Corpuscular Volume 90 fL (79-100) Mean Corpuscular Hemoglobin 31 pg (25-35) Mean Corpuscular Hemoglobin Concent 34 g/dL (31-37) Red Cell Distribution Width 13.0 % (11.5-14.5) Platelet Count 160 x10^3/uL (140-400) Neutrophils (%) (Auto) 77 % (31-73) Lymphocytes (%) (Auto) 15 % (24-48) Monocytes (%) (Auto) 7 % (0-9) Eosinophils (%) (Auto) 1 % (0-3) Basophils (%) (Auto) 0 % (0-3) Neutrophils # (Auto) 5.7 x10^3/uL (1.8-7.7) Lymphocytes # (Auto) 1.1 x10^3/uL (1.0-4.8) Monocytes # (Auto) 0.5 x10^3/uL (0.0-1.1) Eosinophils # (Auto) 0.1 x10^3/uL (0.0-0.7) Basophils # (Auto) 0.0 x10^3/uL (0.0-0.2) Sodium Level 139 mmol/L (136-145) Potassium Level 5.0 mmol/L (3.5-5.1) Chloride Level 106 mmol/L (98-107) Carbon Dioxide Level 23 mmol/L (21-32) Anion Gap 10 (6-14) Blood Urea Nitrogen 67 mg/dL (8-26) Creatinine 6.4 mg/dL (0.7-1.3) Estimated GFR (Cockcroft-Gault) 9.0 Glucose Level 130 mg/dL (70-99) Calcium Level 7.9 mg/dL (8.5-10.1) Test 06/01/20 16:47 06/01/20 20:48 06/02/20 08:05 06/02/20 09:50 Glucose (Fingerstick) 80 mg/dL (70-99) 82 mg/dL (70-99) 89 mg/dL (70-99) White Blood Count 7.0 x10^3/uL (4.0-11.0) Red Blood Count 2.77 x10^6/uL (4.30-5.70) Hemoglobin 8.5 g/dL (13.0-17.5) Hematocrit 24.9 % (39.0-53.0) Mean Corpuscular Volume 90 fL (79-100) Mean Corpuscular Hemoglobin 31 pg (25-35) Mean Corpuscular Hemoglobin Concent 34 g/dL (31-37) Red Cell Distribution Width 13.2 % (11.5-14.5) Platelet Count 175 x10^3/uL (140-400) Neutrophils (%) (Auto) 77 % (31-73) Lymphocytes (%) (Auto) 15 % (24-48) Monocytes (%) (Auto) 5 % (0-9) Eosinophils (%) (Auto) 3 % (0-3) Basophils (%) (Auto) 1 % (0-3) Neutrophils # (Auto) 5.4 x10^3/uL (1.8-7.7) Lymphocytes # (Auto) 1.1 x10^3/uL (1.0-4.8) Monocytes # (Auto) 0.4 x10^3/uL (0.0-1.1) Eosinophils # (Auto) 0.2 x10^3/uL (0.0-0.7) Basophils # (Auto) 0.0 x10^3/uL (0.0-0.2) Sodium Level 139 mmol/L (136-145) Potassium Level 5.0 mmol/L (3.5-5.1) Chloride Level 107 mmol/L (98-107) Carbon Dioxide Level 19 mmol/L (21-32) Anion Gap 13 (6-14) Blood Urea Nitrogen 57 mg/dL (8-26) Creatinine 5.9 mg/dL (0.7-1.3) Estimated GFR (Cockcroft-Gault) 9.9 Glucose Level 167 mg/dL (70-99) Calcium Level 8.2 mg/dL (8.5-10.1) Phosphorus Level 5.1 mg/dL (2.6-4.7) Iron Level 57 ug/dL (65-175) Total Iron Binding Capacity 225 ug/dL (250-450) Iron Saturation 25 % (15-34) Laboratory Tests Test 06/01/20 11:45 06/01/20 16:47 06/01/20 20:48 06/02/20 08:05 White Blood Count 7.4 x10^3/uL (4.0-11.0) Red Blood Count 2.54 x10^6/uL (4.30-5.70) Hemoglobin 7.8 g/dL (13.0-17.5) Hematocrit 22.8 % (39.0-53.0) Mean Corpuscular Volume 90 fL (79-100) Mean Corpuscular Hemoglobin 31 pg (25-35) Mean Corpuscular Hemoglobin Concent 34 g/dL (31-37) Red Cell Distribution Width 13.0 % (11.5-14.5) Platelet Count 160 x10^3/uL (140-400) Neutrophils (%) (Auto) 77 % (31-73) Lymphocytes (%) (Auto) 15 % (24-48) Monocytes (%) (Auto) 7 % (0-9) Eosinophils (%) (Auto) 1 % (0-3) Basophils (%) (Auto) 0 % (0-3) Neutrophils # (Auto) 5.7 x10^3/uL (1.8-7.7) Lymphocytes # (Auto) 1.1 x10^3/uL (1.0-4.8) Monocytes # (Auto) 0.5 x10^3/uL (0.0-1.1) Eosinophils # (Auto) 0.1 x10^3/uL (0.0-0.7) Basophils # (Auto) 0.0 x10^3/uL (0.0-0.2) Sodium Level 139 mmol/L (136-145) Potassium Level 5.0 mmol/L (3.5-5.1) Chloride Level 106 mmol/L (98-107) Carbon Dioxide Level 23 mmol/L (21-32) Anion Gap 10 (6-14) Blood Urea Nitrogen 67 mg/dL (8-26) Creatinine 6.4 mg/dL (0.7-1.3) Estimated GFR (Cockcroft-Gault) 9.0 Glucose Level 130 mg/dL (70-99) Calcium Level 7.9 mg/dL (8.5-10.1) Glucose (Fingerstick) 80 mg/dL (70-99) 82 mg/dL (70-99) 89 mg/dL (70-99) Test 06/02/20 09:50 White Blood Count 7.0 x10^3/uL (4.0-11.0) Red Blood Count 2.77 x10^6/uL (4.30-5.70) Hemoglobin 8.5 g/dL (13.0-17.5) Hematocrit 24.9 % (39.0-53.0) Mean Corpuscular Volume 90 fL (79-100) Mean Corpuscular Hemoglobin 31 pg (25-35) Mean Corpuscular Hemoglobin Concent 34 g/dL (31-37) Red Cell Distribution Width 13.2 % (11.5-14.5) Platelet Count 175 x10^3/uL (140-400) Neutrophils (%) (Auto) 77 % (31-73) Lymphocytes (%) (Auto) 15 % (24-48) Monocytes (%) (Auto) 5 % (0-9) Eosinophils (%) (Auto) 3 % (0-3) Basophils (%) (Auto) 1 % (0-3) Neutrophils # (Auto) 5.4 x10^3/uL (1.8-7.7) Lymphocytes # (Auto) 1.1 x10^3/uL (1.0-4.8) Monocytes # (Auto) 0.4 x10^3/uL (0.0-1.1) Eosinophils # (Auto) 0.2 x10^3/uL (0.0-0.7) Basophils # (Auto) 0.0 x10^3/uL (0.0-0.2) Sodium Level 139 mmol/L (136-145) Potassium Level 5.0 mmol/L (3.5-5.1) Chloride Level 107 mmol/L (98-107) Carbon Dioxide Level 19 mmol/L (21-32) Anion Gap 13 (6-14) Blood Urea Nitrogen 57 mg/dL (8-26) Creatinine 5.9 mg/dL (0.7-1.3) Estimated GFR (Cockcroft-Gault) 9.9 Glucose Level 167 mg/dL (70-99) Calcium Level 8.2 mg/dL (8.5-10.1) Phosphorus Level 5.1 mg/dL (2.6-4.7) Iron Level 57 ug/dL (65-175) Total Iron Binding Capacity 225 ug/dL (250-450) Iron Saturation 25 % (15-34) Medications Current Medications Labetalol HCl (Normodyne Iv Push) 10 mg 1X ONCE IVP Last administered on 05/31/20at 14:59; Start 05/31/20 at 14:15; Stop 05/31/20 at 14:22; Status DC Sodium Bicarbonate (Sodium Bicarb Adult 8.4% Syr) 50 meq 1X ONCE IV Last administered on 05/31/20at 15:00; Start 05/31/20 at 14:45; Stop 05/31/20 at 14:46; Status DC Calcium Gluconate (Calcium Gluconate) 1,000 mg 1X ONCE IVP Last administered on 05/31/20at 15:00; Start 05/31/20 at 14:45; Stop 05/31/20 at 14:46; Status DC Albuterol Sulfate (Ventolin Neb Soln) 10 mg 1X ONCE CONT NEB Last administered on 05/31/20at 14:52; Start 05/31/20 at 14:45; Stop 05/31/20 at 14:46; Status DC Insulin Human Regular (HumuLIN R VIAL) 10 unit 1X ONCE IV Last administered on 05/31/20at 15:02; Start 05/31/20 at 14:45; Stop 05/31/20 at 14:46; Status DC Dextrose (Dextrose 50%-Water Syringe) 25 gm 1X ONCE IV Last administered on 05/31/20at 15:00; Start 05/31/20 at 14:45; Stop 05/31/20 at 14:46; Status DC Sodium Chloride 1,000 ml @ 100 mls/hr 1X IV Last administered on 05/31/20at 15:04; Start 05/31/20 at 15:00; Stop 05/31/20 at 20:59; Status DC Insulin Human Lispro (HumaLOG) 0-5 UNITS TIDWMEALS SQ Last administered on 06/01/20at 13:39; Start 06/01/20 at 08:00 Dextrose (Dextrose 50%-Water Syringe) 12.5 gm PRN Q15MIN PRN IV SEE COMMENTS; Start 05/31/20 at 17:15 Bisacodyl (Dulcolax Supp) 10 mg PRN DAILY PRN IN CONSTIPATION; Start 05/31/20 at 18:15 Heparin Sodium (Porcine) (Heparin Sodium) 5,000 unit Q8HRS SQ Last administered on 06/02/20at 06:34; Start 05/31/20 at 22:00 Sodium Polystyrene Sulfonate (Kayexalate) 30 gm 1X ONCE PO Last administered on 05/31/20at 21:19; Start 05/31/20 at 18:30; Stop 05/31/20 at 18:31; Status DC Labetalol HCl (Normodyne Iv Push) 10 mg PRN Q2HR PRN IVP HYPERTENSION Last administered on 05/31/20at 21:19; Start 05/31/20 at 19:00 Sodium Chloride 1,000 ml @ 75 mls/hr [id number] IV Last administered on 06/02/20at 00:36; Start 06/01/20 at 13:00 Vitals/I & O Vital Sign - Last 24 Hours 06/01/20 06/01/20 06/01/20 06/01/20 14:55 19:00 19:45 20:06 Temp 98.1 98.2 98.1 98.2 Pulse 93 94 Resp 18 16 B/P (MAP) 161/88 (112) 168/96 (120) Pulse Ox 94 94 O2 Delivery Room Air Room Air Room Air Room Air 06/01/20 06/02/20 06/02/20 06/02/20 23:35 03:47 07:00 08:00 Temp 98.1 98.0 98.1 98.1 98.0 98.1 Pulse 93 93 95 Resp 16 16 16 B/P (MAP) 167/98 (121) 156/93 (114) 172/93 (119) Pulse Ox 95 94 93 O2 Delivery Room Air Room Air Room Air Room Air Intake and Output 06/01/20 06/01/20 06/02/20 15:00 23:00 07:00 Intake Total 1050 ml Output Total 250 ml 225 ml 350 ml Balance -250 ml -225 ml 700 ml Justicifation of Admission Dx: Justifications for Admission: Justification of Admission Dx: Yes ELOISA JARAMILLO MD Jun 02, 2020 11:21
[2020-06-02] MEDS ORDERED: LOSA-73 PO (12:12)
[2020-06-02] MEDS ORDERED: GLIP2.5T4 PO (12:12)
--- NOTE | 2020-06-02 13:56 | PDOC ---
Renal-Progress Notes Subjective Notes Notes NO NEW COMPLAINTS History of Present Illness Hx of present illness STABLE Vitals Vitals Vital Signs Date Time Temp Pulse Resp B/P (MAP) Pulse Ox O2 Delivery O2 Flow Rate FiO2 06/02/20 11:00 98.2 93 16 170/95 (120) 95 Room Air 98.2 Weight Weight [ ] I.O. Intake and Output Intake and Output 06/02/20 07:00 Intake Total 1550 ml Output Total 825 ml Balance 725 ml Intake Oral 50 ml IV Total 1000 ml Blood Product IV Normal Saline Flush 500 ml Output Urine Total 825 ml # Voids 1 Labs Labs Laboratory Tests Test 06/01/20 16:47 06/01/20 20:48 06/02/20 08:05 06/02/20 09:50 Glucose (Fingerstick) 80 mg/dL (70-99) 82 mg/dL (70-99) 89 mg/dL (70-99) White Blood Count 7.0 x10^3/uL (4.0-11.0) Red Blood Count 2.77 x10^6/uL (4.30-5.70) Hemoglobin 8.5 g/dL (13.0-17.5) Hematocrit 24.9 % (39.0-53.0) Mean Corpuscular Volume 90 fL (79-100) Mean Corpuscular Hemoglobin 31 pg (25-35) Mean Corpuscular Hemoglobin Concent 34 g/dL (31-37) Red Cell Distribution Width 13.2 % (11.5-14.5) Platelet Count 175 x10^3/uL (140-400) Neutrophils (%) (Auto) 77 % (31-73) Lymphocytes (%) (Auto) 15 % (24-48) Monocytes (%) (Auto) 5 % (0-9) Eosinophils (%) (Auto) 3 % (0-3) Basophils (%) (Auto) 1 % (0-3) Neutrophils # (Auto) 5.4 x10^3/uL (1.8-7.7) Lymphocytes # (Auto) 1.1 x10^3/uL (1.0-4.8) Monocytes # (Auto) 0.4 x10^3/uL (0.0-1.1) Eosinophils # (Auto) 0.2 x10^3/uL (0.0-0.7) Basophils # (Auto) 0.0 x10^3/uL (0.0-0.2) Sodium Level 139 mmol/L (136-145) Potassium Level 5.0 mmol/L (3.5-5.1) Chloride Level 107 mmol/L (98-107) Carbon Dioxide Level 19 mmol/L (21-32) Anion Gap 13 (6-14) Blood Urea Nitrogen 57 mg/dL (8-26) Creatinine 5.9 mg/dL (0.7-1.3) Estimated GFR (Cockcroft-Gault) 9.9 Glucose Level 167 mg/dL (70-99) Calcium Level 8.2 mg/dL (8.5-10.1) Phosphorus Level 5.1 mg/dL (2.6-4.7) Iron Level 57 ug/dL (65-175) Total Iron Binding Capacity 225 ug/dL (250-450) Iron Saturation 25 % (15-34) Test 06/02/20 11:50 Glucose (Fingerstick) 101 mg/dL (70-99) Review of Systems Constitutional: yes: malaise, weakness, alert, oriented Ears/Nose/Throat: Yes: no symptom reported Eyes: Yes: no symptom reported Pulmonary: Yes no symptom reported Cardiovascular: Yes no symptom reported Gastrointestional: Yes: nausea Genitourinary: Yes: no symptom reported Musculoskeletal: Yes: no symptom reported Skin: Yes no symptom reported Psychiatric/Neurological: Yes: no symptom reported Endocrine: Yes: no symptom reported Hematologic/Lymphatic: Yes: no symptom reported Physical Exam General Appearance: no apparent distress Skin: warm Respiratory: bilateral CTA Heart: S1S2 Abdomen: soft, bowel sounds present Genitourinary: bladder flat Extremities: pulses present Neurology: alert Assessment Assessment IMP UREMIA NEW ONSET ESRD ANEMIA UNCONTROLLED HTN-BETTER DM II NON COMPLIANCE ? URINARY RETENTION SECONDARY HYPERPARATHYROIDISM PLAN NORVASC ADD PO4 BINDER HYDRATION CONTROL HTN RESUME HOME MEDS START [facility] ONCE HTN CONTROL IS BETTER WILL HAVE IR PLACE TUNNELED HD CATHETER WILL START HD TOMORROW WILL ASK SW TO SET UP OP HD AT [facility]-PT PREFERENCE SINCE HIS MOTHER ALSO HAS HD THERE UNDER DR OWUSU UPDATED FAMILY-SISTER WHO SPEAKS CYMRO TATUM PALUMBO MD Jun 02, 2020 13:56
[2020-06-02 15:00] VITALS: BP 169/98
--- NOTE | 2020-06-02 16:04 | NUR ---
Patient c/o of SOA and coughing. Dr. Dee notified and received to [facility].
--- NOTE | 2020-06-02 16:05 | NUR ---
Consent obtained for Tunneled Dialysis Catheter placement using ATT pipe smoking machine operator.
--- NOTE | 2020-06-02 19:53 | RAD ---
CHEST AP ONLY INDICATION: dialysis COMPARISON STUDY: None. FINDINGS: Lungs: Low lung volume. Bilateral basilar predominant heterogeneous opacities. . Pleura: Trace bilateral pleural effusions. Heart and Mediastinum: Cardiomegaly. The great vessels of the thorax are normal. IMPRESSION: 1. Low lung volume with bilateral basilar predominant opacities, which could represent subsegmental atelectasis, edema, and/or infection. 2. Trace bilateral pleural effusion. Electronically signed by: Mamadou Beckett MD (06/02/2020 7:50 PM) [facility]
[2020-06-02 19:57] VITALS: BP 169/94
[2020-06-02 23:00] VITALS: BP 182/103
[2020-06-03] VITALS (7 sets, daily range): BP systolic 146–203; BP diastolic 83–106
[2020-06-03] MEDS: LABETALOL 20 MG/4 ML DISP.SYRIN. IVP PRN ×2 (00:15→14:11)
[2020-06-03] MEDS: HEPARIN for SUB-Q USE 5,000 UNIT/ML VIAL. SQ SCH ×3 (05:02→21:26)
[2020-06-03 06:56] LABS: HEMATOCRIT 24.7 % (39.0-53.0); HEMOGLOBIN 8.5 g/dL (13.0-17.5); RED BLOOD COUNT 2.76 x10^6/uL (4.30-5.70); RED CELL DISTRIBUTION WIDTH 13.1 % (11.5-14.5); WHITE BLOOD COUNT 8.3 x10^3/uL (4.0-11.0)
[2020-06-03 07:14] LABS: CALCIUM 8.4 mg/dL (8.5-10.1); CREATININE 5.8 mg/dL (0.7-1.3); GFR 10.1; POTASSIUM 4.6 mmol/L (3.5-5.1)
[2020-06-03] MEDS: INSULIN LISPRO 300 UNITS/3 ML VIAL. SQ SCH ×3 (07:40→17:00)
[2020-06-03 08:34] LABS: PROTHROMBIN TIME PATIENT 14.7 SEC (11.7-14.0)
[2020-06-03] MEDS ORDERED: LIDOCAINE 1%/EPI 1:100,000 20 ML VIAL. ONE (08:41)
[2020-06-03] MEDS ORDERED: ceFAZolin SODIUM IV Push 1 GM VIAL. IVP ONE ×2 (08:56→09:30)
[2020-06-03] MEDS ORDERED: MIDAZOLAM HCL/PF 2 MG/2 ML VIAL. ONE (08:57)
[2020-06-03] MEDS ORDERED: fentaNYL PF VIAL 100 MCG/2 ML VIAL ONE (08:57)
[2020-06-03] MEDS ORDERED: MIDAZOLAM HCL/PF 2 MG/2 ML VIAL. IV ONE (09:30)
[2020-06-03] MEDS ORDERED: LIDOCAINE 1%/EPI 1:100,000 20 ML VIAL. INJ ONE (09:30)
[2020-06-03] MEDS ORDERED: fentaNYL PF VIAL 100 MCG/2 ML VIAL IV ONE (09:30)
[2020-06-03] MEDS ORDERED: ONDANSETRON PF 4 MG/2 ML VIAL. ONE (09:38)
[2020-06-03] MEDS ORDERED: ONDANSETRON PF 4 MG/2 ML VIAL. IVP ONE (09:45)
--- NOTE | 2020-06-03 09:56 | PDOC ---
DATE OF SERVICE DATE: 06/03/20 TIME: 09:56 SUBJECTIVE ROS Initiated on HD, 1 st treatment, No complaints OBJECTIVE Vital Signs Vital Signs Date Time Temp Pulse Resp B/P (MAP) Pulse Ox O2 Delivery O2 Flow Rate FiO2 06/03/20 09:45 81 18 95 Nasal Cannula 2.0 06/03/20 07:00 98.4 181/101 (127) 98.4 I & 0 Intake and Output 06/03/20 07:00 Intake Total 700 ml Output Total 700 ml Balance 0 ml Intake Oral 700 ml Output Urine Total 700 ml PHYSICAL EXAM Physical Exam General Appearance: no apparent distress Skin: warm Respiratory: bilateral CTA, Non labored Heart: S1S2 Abdomen: soft, bowel sounds present Genitourinary: No el Extremities: No edema Neurology: alert DIAGNOSIS/ASSESSMENT Assessment & Plan New Onset ESRD - Initiated on HD today Seen on HD, tolerating well, discussed tx plan with [facility]- Tunnelled HDC on 06/02 OP Chair time - to be set up at [facility] per Pts preference since his mother is also on HD under DR Gtz Anemia - Hbg < 10, stable HTN - antihypertensives DM II ? Urinary retention -. Distended urinary bladder, No hydronephrosis Secondary Hyperparathyroidism - Phos binders etc can be started at OP HD unit COMMENT/RELEVANT DATA Meds Current Medications Medications (Trade) Dose Ordered Sig/Nida Start Time Stop Time Status Last Admin Dose Admin Albuterol Sulfate (Ventolin Neb Soln) 10 mg 1X ONCE 05/31/20 14:45 05/31/20 14:46 DC 05/31/20 14:52 10 MG Bisacodyl (Dulcolax Supp) 10 mg PRN DAILY PRN 05/31/20 18:15 Calcium Gluconate (Calcium Gluconate) 1,000 mg 1X ONCE 05/31/20 14:45 05/31/20 14:46 DC 05/31/20 15:00 1,000 MG Cefazolin Sodium (Ancef) 1 gm 1X ONCE 06/03/20 09:30 06/03/20 09:33 DC 06/03/20 09:19 1 GM Dextrose (Dextrose 50%-Water Syringe) 12.5 gm PRN Q15MIN PRN 05/31/20 17:15 Fentanyl Citrate (Fentanyl 2ml Vial) 50 mcg 1X ONCE 06/03/20 09:30 06/03/20 09:33 DC 06/03/20 09:34 50 MCG Heparin Sodium (Porcine) (Heparin Sodium) 5,000 unit Q8HRS 05/31/20 22:00 06/02/20 22:43 5,000 UNIT Insulin Human Lispro (HumaLOG) 0-5 UNITS TIDWMEALS 06/01/20 08:00 06/01/20 13:39 2 UNITS Insulin Human Regular (HumuLIN R VIAL) 10 unit 1X ONCE 05/31/20 14:45 05/31/20 14:46 DC 05/31/20 15:02 10 UNIT Labetalol HCl (Normodyne Iv Push) 10 mg PRN Q2HR PRN 05/31/20 19:00 06/03/20 00:15 10 MG Lidocaine/ Epinephrine (LIDOCAINE 1%-EPI 1:100,000 Multi-Dose) 10 ml 1X ONCE 06/03/20 09:30 06/03/20 09:33 DC 06/03/20 09:21 10 ML Midazolam HCl (Versed) 2 mg 1X ONCE 06/03/20 09:30 06/03/20 09:33 DC 06/03/20 09:34 2 MG Ondansetron HCl (Zofran) 4 mg 1X ONCE 06/03/20 09:45 06/03/20 09:46 DC 06/03/20 09:41 4 MG Sodium Polystyrene Sulfonate (Kayexalate) 30 gm 1X ONCE 05/31/20 18:30 05/31/20 18:31 DC 05/31/20 21:19 30 GM Sodium Bicarbonate (Sodium Bicarb Adult 8.4% Syr) 50 meq 1X ONCE 05/31/20 14:45 05/31/20 14:46 DC 05/31/20 15:00 50 MEQ Sodium Chloride 1,000 ml @ 75 mls/hr [id number] 06/01/20 13:00 06/02/20 16:03 DC 06/02/20 15:16 75 MLS/HR Lab Laboratory Tests Test 06/02/20 11:50 06/02/20 17:51 06/02/20 21:04 06/03/20 04:56 Glucose (Fingerstick) 101 mg/dL (70-99) 127 mg/dL (70-99) 96 mg/dL (70-99) White Blood Count 8.3 x10^3/uL (4.0-11.0) Red Blood Count 2.76 x10^6/uL (4.30-5.70) Hemoglobin 8.5 g/dL (13.0-17.5) Hematocrit 24.7 % (39.0-53.0) Mean Corpuscular Volume 89 fL (79-100) Mean Corpuscular Hemoglobin 31 pg (25-35) Mean Corpuscular Hemoglobin Concent 34 g/dL (31-37) Red Cell Distribution Width 13.1 % (11.5-14.5) Platelet Count 182 x10^3/uL (140-400) Prothrombin Time 14.7 SEC (11.7-14.0) Prothromb Time International Ratio 1.2 (0.8-1.1) Sodium Level 140 mmol/L (136-145) Potassium Level 4.6 mmol/L (3.5-5.1) Chloride Level 107 mmol/L (98-107) Carbon Dioxide Level 23 mmol/L (21-32) Anion Gap 10 (6-14) Blood Urea Nitrogen 54 mg/dL (8-26) Creatinine 5.8 mg/dL (0.7-1.3) Estimated GFR (Cockcroft-Gault) 10.1 Glucose Level 78 mg/dL (70-99) Calcium Level 8.4 mg/dL (8.5-10.1) Test 06/03/20 06:58 Glucose (Fingerstick) 83 mg/dL (70-99) Results All relevant outside records, renal labs, imaging studies, telemetry/EKG's were reviewed. Justicifation of Admission Dx: Justifications for Admission: Justification of Admission Dx: Yes ROWENA LAMB MD Jun 03, 2020 09:56
--- NOTE | 2020-06-03 10:17 | PDOC ---
PROGRESS NOTES Date of Service: DATE: 06/03/20 TIME: 10:16 Chief Complaint Chief Complaint VTE Prophylaxis Ordered VTE Prophylaxis Devices: No VTE Pharmacological Prophylaxi: Yes impression Assessment/Plan Acute on Chronic Renal Failure Hyperkalemia Hypertensive Urgency Malnutrition, moderate protein-caloric malnutrition Plan: CVC BED monitor potassium and administer insulin as needed. Labetalol prn SBP >180. Will resume home BP meds once we can verify, or discharge on calcium channel gabriella. Consult to Nephrology He can initiate hemodialysis outpatient. TUNNELLED CATH 06/03 d/w rn Justifications for Admission Justifications for Admission Other Justification History of Present Illness History of Present Illness History of Present Illness History of Present Illness Patient is a 55 to male who presents to the ED for hyperkalemia. History was obtained with assistance from patient's son. Patient was seen by his energy engineer's office two days ago for initiation of dialysis appointment, with blood work drawn at that time. He was contacted today and told to go straight to the ED because his blood work showed hyperkalemia. Patient admits to some lethargy, mild numbness in his right hand, but denies any significant weakness. He was also noted to be severely hypertensive in the ED. He is somewhat of a poor historian, stating he only takes two medications, one fo blood pressure and one for diabetes, but he cannot recall the names. Past Medical History Cardiovascular: HTN Renal/: Chronic renal insuff Past Surgical History Past Surgical History: No pertinent history Family History Family History: Diabetes Social History Smoke: <1 pack per day ALCOHOL: none Drugs: None Vitals Vitals Vital Signs Date Time Temp Pulse Resp B/P (MAP) Pulse Ox O2 Delivery O2 Flow Rate FiO2 06/03/20 09:45 81 18 95 Nasal Cannula 2.0 06/03/20 07:00 98.4 181/101 (127) 98.4 Physical Exam General: Alert, Oriented X3, Cooperative, No acute distress Heart: Regular rate Abdomen: Normal bowel sounds, Soft, No tenderness Extremities: No clubbing Skin: No breakdown Labs LABS Laboratory Tests Test 06/02/20 11:50 06/02/20 17:51 06/02/20 21:04 06/03/20 04:56 Glucose (Fingerstick) 101 mg/dL (70-99) 127 mg/dL (70-99) 96 mg/dL (70-99) White Blood Count 8.3 x10^3/uL (4.0-11.0) Red Blood Count 2.76 x10^6/uL (4.30-5.70) Hemoglobin 8.5 g/dL (13.0-17.5) Hematocrit 24.7 % (39.0-53.0) Mean Corpuscular Volume 89 fL (79-100) Mean Corpuscular Hemoglobin 31 pg (25-35) Mean Corpuscular Hemoglobin Concent 34 g/dL (31-37) Red Cell Distribution Width 13.1 % (11.5-14.5) Platelet Count 182 x10^3/uL (140-400) Prothrombin Time 14.7 SEC (11.7-14.0) Prothromb Time International Ratio 1.2 (0.8-1.1) Sodium Level 140 mmol/L (136-145) Potassium Level 4.6 mmol/L (3.5-5.1) Chloride Level 107 mmol/L (98-107) Carbon Dioxide Level 23 mmol/L (21-32) Anion Gap 10 (6-14) Blood Urea Nitrogen 54 mg/dL (8-26) Creatinine 5.8 mg/dL (0.7-1.3) Estimated GFR (Cockcroft-Gault) 10.1 Glucose Level 78 mg/dL (70-99) Calcium Level 8.4 mg/dL (8.5-10.1) Test 06/03/20 06:58 Glucose (Fingerstick) 83 mg/dL (70-99) Comment Review of Relevant I have reviewed the following items tommy (where applicable) has been applied. Labs Laboratory Tests Test 06/01/20 10:56 06/01/20 11:45 06/01/20 16:47 06/01/20 20:48 Glucose (Fingerstick) 159 mg/dL (70-99) 80 mg/dL (70-99) 82 mg/dL (70-99) White Blood Count 7.4 x10^3/uL (4.0-11.0) Red Blood Count 2.54 x10^6/uL (4.30-5.70) Hemoglobin 7.8 g/dL (13.0-17.5) Hematocrit 22.8 % (39.0-53.0) Mean Corpuscular Volume 90 fL (79-100) Mean Corpuscular Hemoglobin 31 pg (25-35) Mean Corpuscular Hemoglobin Concent 34 g/dL (31-37) Red Cell Distribution Width 13.0 % (11.5-14.5) Platelet Count 160 x10^3/uL (140-400) Neutrophils (%) (Auto) 77 % (31-73) Lymphocytes (%) (Auto) 15 % (24-48) Monocytes (%) (Auto) 7 % (0-9) Eosinophils (%) (Auto) 1 % (0-3) Basophils (%) (Auto) 0 % (0-3) Neutrophils # (Auto) 5.7 x10^3/uL (1.8-7.7) Lymphocytes # (Auto) 1.1 x10^3/uL (1.0-4.8) Monocytes # (Auto) 0.5 x10^3/uL (0.0-1.1) Eosinophils # (Auto) 0.1 x10^3/uL (0.0-0.7) Basophils # (Auto) 0.0 x10^3/uL (0.0-0.2) Sodium Level 139 mmol/L (136-145) Potassium Level 5.0 mmol/L (3.5-5.1) Chloride Level 106 mmol/L (98-107) Carbon Dioxide Level 23 mmol/L (21-32) Anion Gap 10 (6-14) Blood Urea Nitrogen 67 mg/dL (8-26) Creatinine 6.4 mg/dL (0.7-1.3) Estimated GFR (Cockcroft-Gault) 9.0 Glucose Level 130 mg/dL (70-99) Calcium Level 7.9 mg/dL (8.5-10.1) Test 06/02/20 08:05 06/02/20 09:50 06/02/20 11:50 06/02/20 17:51 Glucose (Fingerstick) 89 mg/dL (70-99) 101 mg/dL (70-99) 127 mg/dL (70-99) White Blood Count 7.0 x10^3/uL (4.0-11.0) Red Blood Count 2.77 x10^6/uL (4.30-5.70) Hemoglobin 8.5 g/dL (13.0-17.5) Hematocrit 24.9 % (39.0-53.0) Mean Corpuscular Volume 90 fL (79-100) Mean Corpuscular Hemoglobin 31 pg (25-35) Mean Corpuscular Hemoglobin Concent 34 g/dL (31-37) Red Cell Distribution Width 13.2 % (11.5-14.5) Platelet Count 175 x10^3/uL (140-400) Neutrophils (%) (Auto) 77 % (31-73) Lymphocytes (%) (Auto) 15 % (24-48) Monocytes (%) (Auto) 5 % (0-9) Eosinophils (%) (Auto) 3 % (0-3) Basophils (%) (Auto) 1 % (0-3) Neutrophils # (Auto) 5.4 x10^3/uL (1.8-7.7) Lymphocytes # (Auto) 1.1 x10^3/uL (1.0-4.8) Monocytes # (Auto) 0.4 x10^3/uL (0.0-1.1) Eosinophils # (Auto) 0.2 x10^3/uL (0.0-0.7) Basophils # (Auto) 0.0 x10^3/uL (0.0-0.2) Sodium Level 139 mmol/L (136-145) Potassium Level 5.0 mmol/L (3.5-5.1) Chloride Level 107 mmol/L (98-107) Carbon Dioxide Level 19 mmol/L (21-32) Anion Gap 13 (6-14) Blood Urea Nitrogen 57 mg/dL (8-26) Creatinine 5.9 mg/dL (0.7-1.3) Estimated GFR (Cockcroft-Gault) 9.9 Glucose Level 167 mg/dL (70-99) Calcium Level 8.2 mg/dL (8.5-10.1) Phosphorus Level 5.1 mg/dL (2.6-4.7) Iron Level 57 ug/dL (65-175) Total Iron Binding Capacity 225 ug/dL (250-450) Iron Saturation 25 % (15-34) Hepatitis B Surface Antigen Nonreactive (Nonreactive) Hepatitis B Surface Antibody Nonreactive Test 06/02/20 21:04 06/03/20 04:56 06/03/20 06:58 Glucose (Fingerstick) 96 mg/dL (70-99) 83 mg/dL (70-99) White Blood Count 8.3 x10^3/uL (4.0-11.0) Red Blood Count 2.76 x10^6/uL (4.30-5.70) Hemoglobin 8.5 g/dL (13.0-17.5) Hematocrit 24.7 % (39.0-53.0) Mean Corpuscular Volume 89 fL (79-100) Mean Corpuscular Hemoglobin 31 pg (25-35) Mean Corpuscular Hemoglobin Concent 34 g/dL (31-37) Red Cell Distribution Width 13.1 % (11.5-14.5) Platelet Count 182 x10^3/uL (140-400) Prothrombin Time 14.7 SEC (11.7-14.0) Prothromb Time International Ratio 1.2 (0.8-1.1) Sodium Level 140 mmol/L (136-145) Potassium Level 4.6 mmol/L (3.5-5.1) Chloride Level 107 mmol/L (98-107) Carbon Dioxide Level 23 mmol/L (21-32) Anion Gap 10 (6-14) Blood Urea Nitrogen 54 mg/dL (8-26) Creatinine 5.8 mg/dL (0.7-1.3) Estimated GFR (Cockcroft-Gault) 10.1 Glucose Level 78 mg/dL (70-99) Calcium Level 8.4 mg/dL (8.5-10.1) Laboratory Tests Test 06/02/20 11:50 06/02/20 17:51 06/02/20 21:04 06/03/20 04:56 Glucose (Fingerstick) 101 mg/dL (70-99) 127 mg/dL (70-99) 96 mg/dL (70-99) White Blood Count 8.3 x10^3/uL (4.0-11.0) Red Blood Count 2.76 x10^6/uL (4.30-5.70) Hemoglobin 8.5 g/dL (13.0-17.5) Hematocrit 24.7 % (39.0-53.0) Mean Corpuscular Volume 89 fL (79-100) Mean Corpuscular Hemoglobin 31 pg (25-35) Mean Corpuscular Hemoglobin Concent 34 g/dL (31-37) Red Cell Distribution Width 13.1 % (11.5-14.5) Platelet Count 182 x10^3/uL (140-400) Prothrombin Time 14.7 SEC (11.7-14.0) Prothromb Time International Ratio 1.2 (0.8-1.1) Sodium Level 140 mmol/L (136-145) Potassium Level 4.6 mmol/L (3.5-5.1) Chloride Level 107 mmol/L (98-107) Carbon Dioxide Level 23 mmol/L (21-32) Anion Gap 10 (6-14) Blood Urea Nitrogen 54 mg/dL (8-26) Creatinine 5.8 mg/dL (0.7-1.3) Estimated GFR (Cockcroft-Gault) 10.1 Glucose Level 78 mg/dL (70-99) Calcium Level 8.4 mg/dL (8.5-10.1) Test 06/03/20 06:58 Glucose (Fingerstick) 83 mg/dL (70-99) Medications Current Medications Labetalol HCl (Normodyne Iv Push) 10 mg 1X ONCE IVP Last administered on 05/31/20at 14:59; Start 05/31/20 at 14:15; Stop 05/31/20 at 14:22; Status DC Sodium Bicarbonate (Sodium Bicarb Adult 8.4% Syr) 50 meq 1X ONCE IV Last administered on 05/31/20at 15:00; Start 05/31/20 at 14:45; Stop 05/31/20 at 14:46; Status DC Calcium Gluconate (Calcium Gluconate) 1,000 mg 1X ONCE IVP Last administered on 05/31/20at 15:00; Start 05/31/20 at 14:45; Stop 05/31/20 at 14:46; Status DC Albuterol Sulfate (Ventolin Neb Soln) 10 mg 1X ONCE CONT NEB Last administered on 05/31/20at 14:52; Start 05/31/20 at 14:45; Stop 05/31/20 at 14:46; Status DC Insulin Human Regular (HumuLIN R VIAL) 10 unit 1X ONCE IV Last administered on 05/31/20at 15:02; Start 05/31/20 at 14:45; Stop 05/31/20 at 14:46; Status DC Dextrose (Dextrose 50%-Water Syringe) 25 gm 1X ONCE IV Last administered on 05/31/20at 15:00; Start 05/31/20 at 14:45; Stop 05/31/20 at 14:46; Status DC Sodium Chloride 1,000 ml @ 100 mls/hr 1X IV Last administered on 05/31/20at 15:04; Start 05/31/20 at 15:00; Stop 05/31/20 at 20:59; Status DC Insulin Human Lispro (HumaLOG) 0-5 UNITS TIDWMEALS SQ Last administered on 06/01/20at 13:39; Start 06/01/20 at 08:00 Dextrose (Dextrose 50%-Water Syringe) 12.5 gm PRN Q15MIN PRN IV SEE COMMENTS; Start 05/31/20 at 17:15 Bisacodyl (Dulcolax Supp) 10 mg PRN DAILY PRN [place] CONSTIPATION; Start 05/31/20 at 18:15 Heparin Sodium (Porcine) (Heparin Sodium) 5,000 unit Q8HRS SQ Last administered on 06/02/20at 22:43; Start 05/31/20 at 22:00 Sodium Polystyrene Sulfonate (Kayexalate) 30 gm 1X ONCE PO Last administered on 05/31/20at 21:19; Start 05/31/20 at 18:30; Stop 05/31/20 at 18:31; Status DC Labetalol HCl (Normodyne Iv Push) 10 mg PRN Q2HR PRN IVP HYPERTENSION Last administered on 06/03/20at 00:15; Start 05/31/20 at 19:00 Sodium Chloride 1,000 ml @ 75 mls/hr [id number] IV Last administered on 06/02/20at 15:16; Start 06/01/20 at 13:00; Stop 06/02/20 at 16:03; Status DC Lidocaine/ Epinephrine (LIDOCAINE 1%-EPI 1:100,000 Multi-Dose) 20 ml STK-MED ONCE .ROUTE ; Start 06/03/20 at 08:41; Stop 06/03/20 at 08:42; Status DC Cefazolin Sodium (Ancef) 1 gm STK-MED ONCE IVP ; Start 06/03/20 at 08:56; Stop 06/03/20 at 08:57; Status DC Midazolam HCl (Versed) 2 mg STK-MED ONCE .ROUTE ; Start 06/03/20 at 08:57; Stop 06/03/20 at 08:57; Status DC Fentanyl Citrate (Fentanyl 2ml Vial) 100 mcg STK-MED ONCE .ROUTE ; Start 06/03/20 at 08:57; Stop 06/03/20 at 08:57; Status DC Midazolam HCl (Versed) 2 mg 1X ONCE IV Last administered on 06/03/20at 09:34; Start 06/03/20 at 09:30; Stop 06/03/20 at 09:33; Status DC Fentanyl Citrate (Fentanyl 2ml Vial) 50 mcg 1X ONCE IV Last administered on 06/03/20at 09:34; Start 06/03/20 at 09:30; Stop 06/03/20 at 09:33; Status DC Lidocaine/ Epinephrine (LIDOCAINE 1%-EPI 1:100,000 Multi-Dose) 10 ml 1X ONCE INJ Last administered on 06/03/20at 09:21; Start 06/03/20 at 09:30; Stop 06/03/20 at 09:33; Status DC Cefazolin Sodium (Ancef) 1 gm 1X ONCE IVP Last administered on 06/03/20at 09:19; Start 06/03/20 at 09:30; Stop 06/03/20 at 09:33; Status DC Ondansetron HCl (Zofran) 4 mg STK-MED ONCE .ROUTE ; Start 06/03/20 at 09:38; Stop 06/03/20 at 09:39; Status DC Ondansetron HCl (Zofran) 4 mg 1X ONCE IVP Last administered on 06/03/20at 09:41; Start 06/03/20 at 09:45; Stop 06/03/20 at 09:46; Status DC Active Scripts Active Reported Losartan Potassium 50 Mg Tablet 25 Mg PO DAILY Glipizide Er (Glipizide) 2.5 Mg Tab.er.24 1 Tab PO DAILY Vitals/I & O Vital Sign - Last 24 Hours 06/02/20 06/02/20 06/02/20 06/02/20 11:00 15:00 19:57 20:00 Temp 98.2 98.2 98.2 98.2 98.2 98.2 Pulse 93 97 103 Resp 16 16 18 B/P (MAP) 170/95 (120) 169/98 (121) 169/94 (119) Pulse Ox 95 92 94 O2 Delivery Room Air Nasal Cannula Room Air Room Air 06/02/20 06/03/20 06/03/20 06/03/20 23:00 00:15 03:55 07:00 Temp 98.3 98.2 98.4 98.3 98.2 98.4 Pulse 100 100 90 93 Resp 16 16 16 B/P (MAP) 182/103 (129) 182/103 167/99 (121) 181/101 (127) Pulse Ox 95 94 93 O2 Delivery Room Air Room Air Room Air 06/03/20 06/03/20 06/03/20 08:00 09:34 09:45 Pulse 81 Resp 18 18 Pulse Ox 95 95 O2 Delivery Room Air Nasal Cannula Nasal Cannula O2 Flow Rate 2.0 2.0 Intake and Output 06/02/20 06/02/20 06/03/20 15:00 23:00 07:00 Intake Total 400 ml 300 ml Output Total 425 ml 275 ml Balance 400 ml -425 ml 25 ml Justicifation of Admission Dx: Justifications for Admission: Justification of Admission Dx: Yes ELOISA JARAMILLO MD Jun 03, 2020 10:17
[2020-06-03] MEDS ORDERED: IV NORMAL SALINE 1000ML BAG 1,000 ML IV PRN ×2 (10:43)
[2020-06-03] MEDS ORDERED: DIALYSIS PATIENT. MC PRN (10:45)
[2020-06-03] MEDS ORDERED: diphenhydrAMINE 50 MG/ML VIAL IV PRN ×2 (10:45)
[2020-06-03] MEDS ORDERED: ALBUMIN HUMAN 25% 200 ML IV PRN (10:45)
--- NOTE | 2020-06-03 11:25 | NUR ---
SS following for discharge planning. SS reviewed pt chart and discussed with pt RN. Pt is from home with spouse and family and is currently on room air. PT/OT recommended home. Pt is new ESRD and is needing outpatient dialysis set up. Pt's family requesting outpatient set up at [facility] in [place], [place]. Pt having tunneled cath placed today. COVID19 test pending. Hep B Total Core ordered. Pt having first dialysis treatment after cath placement. SS will continue to follow for discharge planning.
--- NOTE | 2020-06-03 11:29 | RAD ---
Procedure: Tunneled hemodialysis catheter placement 06/03/2020 9:24 AM Clinical Indication: NEW ESRD Sterility: All elements of maximal sterile barrier technique including the use of a cap, mask, sterile gown, sterile gloves, large sterile sheet, appropriate hand hygiene, and 2% chlorhexidine for cutaneous antisepsis (or acceptable alternative antiseptic per current guidelines) were followed for this procedure. Consent: The procedure was explained in its entirety to the patient or the patients designated patient support representative by a member of the treatment team, including a discussion of the risks, benefits and commonly accepted alternatives to the procedure, as well as the expected consequences of no therapy whatsoever. Discussion of the risks included, but was not limited to, those that are most frequent and those that are rare but possibly severe or life-threatening, as well as the possibility of unforeseen complications. Technique and Findings: Following informed consent, a timeout procedure was performed. The patient was prepped and draped in the usual sterile fashion. Ultrasound interrogation of the right neck revealed patency and compressibility of the right internal jugular vein. A 21-gauge micropuncture was then used to gain access to this vein under ultrasound guidance. A hard copy ultrasound image was recorded. The needle was exchanged over a wire for a 4 Macedonian sheath which was used to guide an guidewire into the IVC. The skin over the right anterior chest wall was copiously anesthetized with 1% Lidocaine and a small dermatotomy was made. A 23 cm tipped cuff palindrome tunneled hemodialysis catheter was then tunneled subcutaneously towards the neck dermatotomy and deployed through a large caliber peel-away sheath under fluoroscopic guidance such that the distal tip resided in the mid right atrium. Manual flow rates were assessed and found to be within normal limits. The catheter was then flushed, packed with Heparin, capped, and sutured to the skin. The neck dermatotomy was closed with Dermabond. No immediate complications were identified. Moderate Sedation Time: 28 min FLUORO TIME: 0.6 MIN DOSE: 2 Gycm2 Sedation: Conscious sedation was administered for 28 minutes. The patient was monitored by a qualified independent observer throughout the time of sedation. Please refer to the medical record for exact doses of medications utilized to achieve moderate sedation. Fluoroscopy time: 0.6 min Dose area product: 2 Gycm2 Impression: Tunneled hemodialysis catheter placement as described
[2020-06-03] MEDS: LOSARTAN POTASSIUM 50 MG TABLET. PO SCH (14:10)
--- NOTE | 2020-06-03 16:05 | NUR ---
SS following up with discharge planning. COVID19 negative. SS phoned and faxed complete referral to [facility], ; fax [phone]. SS will continue to follow for discharge planning.
[2020-06-04 02:42] VITALS: BP 156/90
[2020-06-04] MEDS: HEPARIN for SUB-Q USE 5,000 UNIT/ML VIAL. SQ SCH (05:01)
[2020-06-04 07:00] VITALS: BP 151/88
[2020-06-04] MEDS ORDERED: DIALYSIS PATIENT. MC PRN ×2 (08:00)
[2020-06-04] MEDS ORDERED: IV NORMAL SALINE 1000ML BAG 1,000 ML IV PRN ×2 (08:00)
[2020-06-04] MEDS: INSULIN LISPRO 300 UNITS/3 ML VIAL. SQ SCH ×2 (08:00→12:00)
[2020-06-04] MEDS ORDERED: ALBUMIN HUMAN 25% 200 ML IV PRN (08:00)
[2020-06-04] MEDS ORDERED: LOSARTAN POTASSIUM 50 MG TABLET. PO SCH (09:00)
[2020-06-04 09:01] LABS: HEMATOCRIT 23.4 % (39.0-53.0); HEMOGLOBIN 8.2 g/dL (13.0-17.5); RED BLOOD COUNT 2.62 x10^6/uL (4.30-5.70); RED CELL DISTRIBUTION WIDTH 13.1 % (11.5-14.5); WHITE BLOOD COUNT 6.6 x10^3/uL (4.0-11.0)
[2020-06-04 09:24] LABS: CALCIUM 8.3 mg/dL (8.5-10.1); CREATININE 4.3 mg/dL (0.7-1.3); GFR 14.3; POTASSIUM 4.8 mmol/L (3.5-5.1)
--- NOTE | 2020-06-04 09:24 | PDOC ---
DATE OF SERVICE DATE: 06/04/20 TIME: 09:24 SUBJECTIVE ROS No complaints on Dialysis OBJECTIVE Vital Signs Vital Signs Date Time Temp Pulse Resp B/P (MAP) Pulse Ox O2 Delivery O2 Flow Rate FiO2 06/04/20 07:00 98.2 95 20 151/88 (109) 88 Room Air 98.2 06/03/20 09:45 2.0 I & 0 Intake and Output 06/04/20 07:00 Intake Total 740 ml Output Total 100 ml Balance 640 ml Intake Oral 740 ml Output Urine Total 100 ml PHYSICAL EXAM Physical Exam General Appearance: no apparent distress Skin: warm Respiratory: bilateral CTA, Non labored Heart: S1S2 Abdomen: soft, bowel sounds present Genitourinary: No el Extremities: No edema Neurology: alert DIAGNOSIS/ASSESSMENT Assessment & Plan New Onset ESRD - Initiated on HD 06/03 2 nd treatment today , Seen on HD, tolerating well, discussed tx plan with [facility]- Tunnelled HDC on 06/02 OP Chair time - to be set up at [facility] per Pts preference since his mother is also on HD under DR Gtz From renal standpoint can bed dced once OP HD is set up Anemia - Hbg < 10, stable , Tsats Normal Start CARSON HTN - antihypertensives DM II ? Urinary retention -. Distended urinary bladder, No hydronephrosis Secondary Hyperparathyroidism - Phos binders etc can be started at OP HD unit COMMENT/RELEVANT DATA Meds Current Medications Medications (Trade) Dose Ordered Sig/Nida Start Time Stop Time Status Last Admin Dose Admin Albumin Human 200 ml @ 200 mls/hr 1X PRN PRN 06/03/20 10:45 06/03/20 16:44 DC Albuterol Sulfate (Ventolin Neb Soln) 10 mg 1X ONCE 05/31/20 14:45 05/31/20 14:46 DC 05/31/20 14:52 10 MG Bisacodyl (Dulcolax Supp) 10 mg PRN DAILY PRN 05/31/20 18:15 Calcium Gluconate (Calcium Gluconate) 1,000 mg 1X ONCE 05/31/20 14:45 05/31/20 14:46 DC 05/31/20 15:00 1,000 MG Cefazolin Sodium (Ancef) 1 gm 1X ONCE 06/03/20 09:30 06/03/20 09:33 DC 06/03/20 09:19 1 GM Dextrose (Dextrose 50%-Water Syringe) 12.5 gm PRN Q15MIN PRN 05/31/20 17:15 Diphenhydramine HCl (Benadryl) 25 mg 1X PRN PRN 06/03/20 10:45 06/04/20 10:44 Fentanyl Citrate (Fentanyl 2ml Vial) 50 mcg 1X ONCE 06/03/20 09:30 06/03/20 09:33 DC 06/03/20 09:34 50 MCG Heparin Sodium (Porcine) (Heparin Sodium) 5,000 unit Q8HRS 05/31/20 22:00 06/04/20 05:01 5,000 UNIT Info (PHARMACY MONITORING -- do not chart) 1 each PRN DAILY PRN 06/03/20 10:45 Insulin Human Lispro (HumaLOG) 0-5 UNITS TIDWMEALS 06/01/20 08:00 06/01/20 13:39 2 UNITS Insulin Human Regular (HumuLIN R VIAL) 10 unit 1X ONCE 05/31/20 14:45 05/31/20 14:46 DC 05/31/20 15:02 10 UNIT Labetalol HCl (Normodyne Iv Push) 10 mg PRN Q2HR PRN 05/31/20 19:00 06/03/20 14:11 10 MG Lidocaine/ Epinephrine (LIDOCAINE 1%-EPI 1:100,000 Multi-Dose) 10 ml 1X ONCE 06/03/20 09:30 06/03/20 09:33 DC 06/03/20 09:21 10 ML Losartan Potassium (Cozaar) 25 mg DAILY 06/03/20 13:45 06/03/20 14:10 25 MG Midazolam HCl (Versed) 2 mg 1X ONCE 06/03/20 09:30 06/03/20 09:33 DC 06/03/20 09:34 2 MG Ondansetron HCl (Zofran) 4 mg 1X ONCE 06/03/20 09:45 06/03/20 09:46 DC 06/03/20 09:41 4 MG Sodium Polystyrene Sulfonate (Kayexalate) 30 gm 1X ONCE 05/31/20 18:30 05/31/20 18:31 DC 05/31/20 21:19 30 GM Sodium Bicarbonate (Sodium Bicarb Adult 8.4% Syr) 50 meq 1X ONCE 05/31/20 14:45 05/31/20 14:46 DC 05/31/20 15:00 50 MEQ Sodium Chloride 1,000 ml @ 400 mls/hr Q2H30M PRN 06/03/20 10:43 06/03/20 22:42 DC Lab Laboratory Tests Test 06/03/20 14:00 06/03/20 14:35 06/03/20 16:28 06/03/20 20:15 SARS-CoV-2 Antigen (Rapid) Negative (NEGATIVE) Glucose (Fingerstick) 98 mg/dL (70-99) 126 mg/dL (70-99) 114 mg/dL (70-99) Test 06/04/20 07:49 06/04/20 08:45 Glucose (Fingerstick) 85 mg/dL (70-99) White Blood Count 6.6 x10^3/uL (4.0-11.0) Red Blood Count 2.62 x10^6/uL (4.30-5.70) Hemoglobin 8.2 g/dL (13.0-17.5) Hematocrit 23.4 % (39.0-53.0) Mean Corpuscular Volume 90 fL (79-100) Mean Corpuscular Hemoglobin 31 pg (25-35) Mean Corpuscular Hemoglobin Concent 35 g/dL (31-37) Red Cell Distribution Width 13.1 % (11.5-14.5) Platelet Count 157 x10^3/uL (140-400) Results All relevant outside records, renal labs, imaging studies, telemetry/EKG's were reviewed. Justicifation of Admission Dx: Justifications for Admission: Justification of Admission Dx: Yes ROWENA LAMB MD Jun 04, 2020 09:24
[2020-06-04] MEDS: LOSARTAN POTASSIUM 50 MG TABLET. PO SCH (09:41)
--- NOTE | 2020-06-04 10:39 | PDOC ---
[facility] PROGRESS NOTE Date of Service DOS: DATE: 06/04/20 TIME: 10:25 Chief Complaint Chief Complaint Hyperkalemia, ARF History of Present Illness History of Present Illness 06/04/2020 Patient seen and examined Discussed with RN Discussed Case Management Reviewed chart Patient was standing by bed, NAD Continue dialysis Await chair time Tunneled hemodialysis catheter placed 06/03 and looks clean and dry Covid negative as of 06/03/2020 Discharge disposition pending History of Present Illness History of Present Illness Patient is a 55 to male who presents to the ED for hyperkalemia. History was obtained with assistance from patient's son. Patient was seen by his mammalogist's office two days ago for initiation of dialysis appointment, with blood work drawn at that time. He was contacted today and told to go straight to the ED because his blood work showed hyperkalemia. Patient admits to some lethargy, mild numbness in his right hand, but denies any significant weakness. He was also noted to be severely hypertensive in the ED. He is somewhat of a poor historian, stating he only takes two medications, one fo blood pressure and one for diabetes, but he cannot recall the names. Past Medical History Cardiovascular: HTN Renal/: Chronic renal insuff Past Surgical History Past Surgical History: No pertinent history Family History Family History: Diabetes Social History Smoke: <1 pack per day ALCOHOL: none Drugs: None Vitals/I&O Vitals/I&O: Vital Signs Date Time Temp Pulse Resp B/P (MAP) Pulse Ox O2 Delivery O2 Flow Rate FiO2 06/04/20 09:41 95 151/88 06/04/20 07:00 98.2 20 88 Room Air 98.2 06/03/20 09:45 2.0 I & O 06/03/20 06/03/20 06/04/20 15:00 23:00 07:00 Intake Total 0 ml 340 ml 400 ml Output Total 100 ml Balance 0 ml 340 ml 300 ml Physical Exam General: Alert, Cooperative, No acute distress Heart: Regular rate Abdomen: Normal bowel sounds, Soft, No tenderness Extremities: No clubbing Skin: No breakdown Labs Labs: Laboratory Tests Test 06/03/20 14:00 06/03/20 14:35 06/03/20 16:28 06/03/20 20:15 SARS-CoV-2 Antigen (Rapid) Negative (NEGATIVE) Glucose (Fingerstick) 98 mg/dL (70-99) 126 mg/dL (70-99) 114 mg/dL (70-99) Test 06/04/20 07:49 06/04/20 08:45 Glucose (Fingerstick) 85 mg/dL (70-99) White Blood Count 6.6 x10^3/uL (4.0-11.0) Red Blood Count 2.62 x10^6/uL (4.30-5.70) Hemoglobin 8.2 g/dL (13.0-17.5) Hematocrit 23.4 % (39.0-53.0) Mean Corpuscular Volume 90 fL (79-100) Mean Corpuscular Hemoglobin 31 pg (25-35) Mean Corpuscular Hemoglobin Concent 35 g/dL (31-37) Red Cell Distribution Width 13.1 % (11.5-14.5) Platelet Count 157 x10^3/uL (140-400) Sodium Level 137 mmol/L (136-145) Potassium Level 4.8 mmol/L (3.5-5.1) Chloride Level 102 mmol/L (98-107) Carbon Dioxide Level 28 mmol/L (21-32) Anion Gap 7 (6-14) Blood Urea Nitrogen 29 mg/dL (8-26) Creatinine 4.3 mg/dL (0.7-1.3) Estimated GFR (Cockcroft-Gault) 14.3 Glucose Level 89 mg/dL (70-99) Calcium Level 8.3 mg/dL (8.5-10.1) Review of Systems Review of Systems: Denies pain Denies weakness Assessment and Plan Assessmemt and Plan Assessment Acute on Chronic Renal Failure Hyperkalemia Hypertensive Urgency Malnutrition, moderate protein-caloric malnutrition Plan Continue dialysis Await chair time Potassium and administer insulin as needed Labetalol prn SBP >180. Will resume home BP meds once we can verify, or discharge on calcium channel gabriella Nephrology consult did not recommend emergent dialysis 06/04 Full code Home meds DVT prophylaxis Discharge disposition pending Comment Review of Relevant I have reviewed the following items tommy (where applicable) has been applied. Medications: Current Medications Medications (Trade) Dose Ordered Sig/Nida Route PRN Reason Start Time Stop Time Status Last Admin Dose Admin Losartan Potassium (Cozaar) 25 mg DAILY PO 06/03/20 13:45 9/1/20 09:41 Justifications for Admission Other Justification SHREYA SHAFFER III DO Jun 04, 2020 10:39
--- NOTE | 2020-06-04 12:18 | NUR ---
SS following up with discharge planning. SS reviewed pt chart and discussed with pt RN. Pt has confirmed chair time at [facility] ([facility]3], [address] [place] [id number], ; fax [phone]. Pt has Wednesday, , and Wednesday chair time at 1100. Pt's first chair time is 06/06/2020 at 1030. SS contacted pt's sister, Avani, and discussed. Pt's sister understanding of schedule. Pt in dialysis now. Discharge order on the chart. Pt's sister reported that pt will have transportation at 1400. Pt's RN notified.
[2020-06-04 15:00] VITALS: BP 170/87
[2020-06-04 16:02] VITALS: BP 155/85
--- NOTE | 2020-06-04 17:31 | NUR ---
Discharge Note: SOBIA BROWER[address] Discharge instructions and discharge home medications reviewed with Patient and a copy given. All questions have been answered and understanding verbalized. The following instructions and handouts were given: USED HIDE SELECTOR PHONE TO DISCHARGE PATIENT. Provided dialysis chair time instructions and appointment time to patient and family member at bedside. education re: dialysis catheter care Discontinued lines and drains: [peripheral IV discontinued, dressing clean, dry and intact. Patient discharged to home with family via ambulation
[2020-06-04] MEDS ORDERED: DARBEPOETIN ALFA 60 MCG/0.3 ML DISP.SYRIN. SQ SCH (21:00)
== END 2020-06-04 17:15 | disposition home or self-care (01) | DRG 674 ==
LOC: ER 12:39 → ED HOLD 14:37 → 2 SOUTH 16:53
PROVIDERS: ADMIT Family Medicine; ATTEND Family Medicine
PROC: 0JH63XZ Insertion of Tunneled Vascular Access Device into Chest Subcutaneous Tissue and Fascia, Percutaneous Approach (ICD-10-PCS; 2020-06-03)
PROC: 5A1D70Z Performance of Urinary Filtration, Intermittent, Less than 6 Hours Per Day (ICD-10-PCS; 2020-06-03)
PROC: 02H633Z Insertion of Infusion Device into Right Atrium, Percutaneous Approach (ICD-10-PCS; 2020-06-03)
PROC: B548ZZA Ultrasonography of Superior Vena Cava, Guidance (ICD-10-PCS; 2020-06-03)
PROC: 5A1D70Z Performance of Urinary Filtration, Intermittent, Less than 6 Hours Per Day (ICD-10-PCS; principal; 2020-06-04)
DX: N17.9 Acute kidney failure, unspecified (principal); E44.0 Moderate protein-calorie malnutrition; I12.0 Hypertensive chronic kidney disease with stage 5 chronic kidney disease or end stage renal disease; E87.5 Hyperkalemia; N18.6 End stage renal disease; N25.81 Secondary hyperparathyroidism of renal origin; I16.0 Hypertensive urgency; Z20.828 Contact with and (suspected) exposure to other viral communicable diseases; D64.9 Anemia, unspecified; E11.22 Type 2 diabetes mellitus with diabetic chronic kidney disease; F17.210 Nicotine dependence, cigarettes, uncomplicated; N32.89 Other specified disorders of bladder; Z82.49 Family history of ischemic heart disease and other diseases of the circulatory system; Z83.3 Family history of diabetes mellitus; Z91.19 Patient's noncompliance with other medical treatment and regimen
CPT/HCPCS: 36415; 36558; 71045; 76770; 76937; 77001; 80048; 80076; 81001; 82962; 83540; 83550; 83690; 84100; 84484; 85025; 85027; 85610; 86704; 86706; 87340; 87426; 94644; 96361; 96374; 96375; 99152; 99153; 99285; C1750; C1769; C1892; J0610; J0690; J1644; J1815; J2250; J2405; J3010; J3490; J7030; G0378; J7613; U0003-CS